=== PATIENT | female | born 1950 | race African-American/Black ===

== ENCOUNTER 2020-04-16 18:57 | Outpatient (CLI) | payer MEDICARE, MEDICAID, SELFPAY ==
--- NOTE | ~2020-04-16 | XR_ITS ---
EXAMINATION: XR cervical spine min 6V EXAM DATE: 04/16/2020 19:40 INDICATION: Left-sided neck pain. TECHNIQUE: Cervical spine frontal, lateral, open-mouth odontoid, bilateral obliques, lateral flexion and lateral extension projections. There is no prior study for comparison. FINDINGS: There is moderate disc disease at C3-4, C5-6, C6-7 and C7-T1. There is 2 mm of retrolisthe sis C3 on C4 and C4 on C5 on the extension projections. Probably moderate right neural foraminal sten osis at C2-3, C5-6 and C6-7. Probably moderate left neural foraminal stenosis at C6-7. Overall modera te cervical arthropathy. Prevertebral soft tissue and pre-dens space are within normal limits. The od ontoid process is intact. The lateral masses of C1 line up with C2. Lung apices unremarkable. IMPRESSION: Cervical spondylosis as above. Reviewed, dictated and finalized at location A.
--- NOTE | ~2020-04-16 | XR_ITS ---
EXAMINATION: XR elbow LT min 3V EXAM DATE: 04/16/2020 19:40 INDICATION: Left elbow pain, worse with bending. Fall, initial encounter. TECHNIQUE: Left elbow frontal, lateral with flexion, and oblique projections obtained and reviewed. There is no prior study for comparison. FINDINGS: Left elbow anterior humeral line intact. There are no acute fractures or dislocations chacha ntified. There is no subcutaneous gas. The soft tissue is unremarkable. There are no radiopaque f oreign bodies. No evidence of joint effusion. IMPRESSION: No acute osseous findings. Reviewed, dictated and finalized at location G. IMPRESSION: No acute osseous findings.
--- NOTE | ~2020-04-16 | XR_ITS ---
EXAMINATION: XR hip LT min 2V EXAM DATE: 04/16/2020 19:40 INDICATION: Initial encounter following injury, with pain of the left hip. TECHNIQUE: Left hip frontal, crosstable lateral and 'frog-leg' projections for interpretation. Ther e is no prior study for comparison. FINDINGS: Smooth left hip femoral head contour, no radiographic evidence of avascular necrosis. Ther e is moderate primary osteoarthritis. There are no acute fractures or dislocations identified. There is no subcutaneous gas. The soft tissue is unremarkable. Lower lumbar posterior fusion. IMPRESSION: 1. Left hip exam without acute osseous findings. 2. Moderate osteoarthritis. Reviewed, dictated and finalized at location A.
== END 2020-04-16 18:58 | disposition home or self-care (01) ==
PROVIDERS: PCP Emergency Medicine; Visit Provider Nurse Practitioner
DX: M25.522 Pain in left elbow (principal); M47.892 Other spondylosis, cervical region; M16.12 Unilateral primary osteoarthritis, left hip
CPT/HCPCS: 72052; 73080; 73502

== ENCOUNTER 2020-10-07 08:32 | Outpatient (CLI) | payer MEDICARE, MEDICAID, SELFPAY ==
--- NOTE | ~2020-10-07 | CT_ITS ---
EXAMINATION: CT abdomen pelvis wo/w con EXAM DATE: 10/07/2020 09:32 INDICATION: Abdominal pain. Urinary urgency. TECHNIQUE: Spiral CT of the abdomen and pelvis was performed without contrast. The patient was then injected with small bolus intravenous Omnipaque 350, followed by delay of approximately 10 minutes to allow collecting system to opacify. A post contrast scan abdomen and pelvis was performed during inj ection of remaining contrast. A total of 130 cc intravenous contrast was administered. The dose-rashel th product (DLP) for this examination was 2903.87 mGy-cm. The exposure was tailored according to pat ient size (auto mA exposure control), and iterative reconstruction (ASIR) was used as additional dose reduction technique. There is no prior study for comparison. FINDINGS: There is no hydronephrosis or nephrolithiasis. There are 2 left renal cysts, largest measu ring 2.0 cm, smallest measuring 9 mm, partially exophytic and hemorrhagic. The kidneys enhance symme trically. There are no suspicious renal lesions. The calyces and opacified portions of ureters are unremarkable, without filling defects or focal suspicious strictures. Mild bladder wall trabeculatio n without significant thickening. No focal bladder wall mass suspected. Probable small calcified fib roid. The liver, spleen, adrenal glands and pancreas are unremarkable. Gallbladder is unremarkable. No bi liary obstruction. There is no retroperitoneal or pelvic lymphadenopathy. There is mild scattered arteriosclerotic disease. The appendix is not positively visualized. There is no pericecal inflammatory change to suggest appe ndicitis. The stomach and small bowel are unremarkable. There is moderate amount of colonic stool. There is moderate sigmoid predominant colonic diverticulosis. There is no adjacent inflammatory sowmya nge to suggest diverticulitis. No free intraperitoneal gas. The heart is normal in size. There ar e no pericardial or pleural effusions. The lung bases are unremarkable. L4-5 laminectomies, posteri or fusion. There are no osteoblastic or osteolytic lesions identified. Surgical bone harvest defect in the right iliac crest. IMPRESSION: 1. Mild bladder wall trabeculation without focal suspicious lesion suspected. 2. Left renal cyst. 3. Colonic diverticulosis. 4. Small calcified fibroid. Reviewed, dictated and finalized at location B. DREN'S COUNSELOR
[2020-10-07 09:14] LABS: Estimated Glomerular Filt Rate > 60
== END 2020-10-07 08:33 | disposition home or self-care (01) ==
PROVIDERS: PCP Emergency Medicine; Visit Provider Emergency Medicine
DX: R10.9 Unspecified abdominal pain (principal); R93.41 Abnormal radiologic findings on diagnostic imaging of renal pelvis, ureter, or bladder; N28.1 Cyst of kidney, acquired; K57.90 Diverticulosis of intestine, part unspecified, without perforation or abscess without bleeding; D21.9 Benign neoplasm of connective and other soft tissue, unspecified
CPT/HCPCS: 74178; Q9967

== ENCOUNTER → 2021-02-07 01:11 | Outpatient (CLI) | payer MEDICARE, MEDICAID, SELFPAY ==
[2021-02-07 19:37] LABS: SARS-CoV-2 RNA PCR Negative
== END ==
PROVIDERS: PCP Emergency Medicine; Visit Provider Internal Medicine Gastroenterology
DX: Z01.812 Encounter for preprocedural laboratory examination (principal); Z20.822 Contact with and (suspected) exposure to COVID-19
CPT/HCPCS: C9803; U0003; U0005

== ENCOUNTER 2021-02-11 00:27 | Day surgery (SDC) | payer MEDICARE, MEDICAID, SELFPAY ==
[2021-02-05 09:13] VITALS: BMI 36.9
[2021-02-11 08:11] VITALS: BP 140/81; PULSE 59; RESP 16; TEMP 36.1; O2SAT 97; BMI 36.2
--- NOTE | 2021-02-11 08:19 | PM.HPGS ---
History of Present Illness History of Present Illness Consent: Risks, benefits, and alternatives have been discussed and questions answered. Patient agrees to proceed with procedure. Chief complaint: neoplasm screening Narrative: Izzy Victoria is a 70 year old female Here today for colon cancer screening. It has been more than 10 years since her last colonoscopy Review of Systems Review of Systems: All systems reviewed & are unremarkable except as noted in HPI and below PMFSH Past Medical History Medical History Aortic ectasia Chronic pain Elevated vitamin B12 level Hepatitis C Osteopenia Pulmonary HTN Surgical History Surgical History History of back surgery History of carpal tunnel release History of endometrial ablation History of hemorrhoidectomy Family History Family History Father Pneumonia Mother Coronary artery disease Diabetes mellitus Hypertension Sibling Rheumatoid arthritis Diabetes mellitus Social History Social History Smoking status: Never smoker Alcohol intake: current Living arrangements: alone Spiritual care concerns: Yes (NO BLOOD PRODUCTS) Meds Home Medications and Allergies Home Medications Medication Instructions Recorded Confirmed Type amlodipine 10 mg tablet 10 mg PO DAILY 10/22/19 02/11/21 History ergocalciferol (vitamin D2) 1,250 1,250 mcg PO WEEKLY 10/22/19 02/11/21 History mcg (50,000 unit) capsule celecoxib 50 mg capsule 50 mg PO BID 01/28/21 02/11/21 History oxybutynin chloride 5 mg tablet 5 mg PO DAILY 01/28/21 02/11/21 History oxycodone-acetaminophen 10 mg-325 1 tablet PO Q6H PRN 01/28/21 02/11/21 History mg tablet tizanidine 4 mg capsule 4 mg PO QHS 01/28/21 02/11/21 History [id number] 1 tablet PO DAILY 02/05/21 02/11/21 History Allergies Allergy/AdvReac Type Severity Reaction Status Date / Time morphine Allergy Mild Rash Verified 02/11/21 08:10 pentazocine [From Talwin] Allergy Mild lethargic Verified 02/11/21 08:10 and sweating Vital Signs Vital Signs - 24 hr 02/11/21 08:11 Temperature 36.1 C L Pulse Rate 59 L Respiratory Rate 16 Blood Pressure 140/81 Pulse Oximetry 97 Exam Const: General: alert Orientation/consciousness: patient oriented x3 Resp: Auscultation: clear to auscultation bilaterally Cardio: Rhythm: regular rhythm GI: GI Palp: Yes Soft to palpation and No Tenderness to palpation present (GI) Neuro: General: patient oriented x3 Assessment and Plan Assessment and plan (1) Colon cancer screening: Code(s): Z12.11 - Encounter for screening for malignant neoplasm of colon Status: Acute Assessment and Plan: EGD with possible biopsy or dilatation or cautery.
--- NOTE | 2021-02-11 08:30 | WPDANESEPPF ---
Anes - Initial Pre Proc Eval Procedure: Operation Date: 02/11/21 09:00 Proposed Procedures p Screening Colonoscopy - Serjio Estrada MD Date/Time: 02/11/21 08:30 Surgeon: Serjio Estrada MD Pre Op Diagnosis: neoplasm screening Patient Data Age: 70 Gender: F Height: 5 ft 7 in Weight: 104.9 kg Last Vital Signs Temp 97 F L 02/11/21 08:11 Pulse 59 L 02/11/21 08:11 Resp 16 02/11/21 08:11 BP 140/81 02/11/21 08:11 Pulse Ox 97 02/11/21 08:11 Allergies Allergy/AdvReac Type Severity Reaction Status Date / Time morphine Allergy Mild Rash Verified 02/11/21 08:10 pentazocine [From Talwin] Allergy Mild lethargic Verified 02/11/21 08:10 and sweating Home Medications Medication Instructions Recorded Confirmed Type amlodipine 10 mg tablet 10 mg PO DAILY 10/22/19 02/11/21 History ergocalciferol (vitamin D2) 1,250 1,250 mcg PO WEEKLY 10/22/19 02/11/21 History mcg (50,000 unit) capsule celecoxib 50 mg capsule 50 mg PO BID 01/28/21 02/11/21 History oxybutynin chloride 5 mg tablet 5 mg PO DAILY 01/28/21 02/11/21 History oxycodone-acetaminophen 10 mg-325 1 tablet PO Q6H PRN 01/28/21 02/11/21 History mg tablet tizanidine 4 mg capsule 4 mg PO QHS 01/28/21 02/11/21 History [id number] 1 tablet PO DAILY 02/05/21 02/11/21 History Patient hx anesthesia problems: none Family hx anesthesia problems: none PMFSH Past Medical History Medical History Aortic ectasia Chronic pain Elevated vitamin B12 level Hepatitis C Osteopenia Pulmonary HTN Surgical History Surgical History History of back surgery History of carpal tunnel release History of endometrial ablation History of hemorrhoidectomy Family History Family History Father Pneumonia Mother Coronary artery disease Diabetes mellitus Hypertension Sibling Rheumatoid arthritis Diabetes mellitus Social History Social History Smoking status: Never smoker Alcohol intake: current Living arrangements: alone Spiritual care concerns: Yes (NO BLOOD PRODUCTS) Anes - Eval Final PreProcedure Day of Procedure 02/11/21 08:30 Patient weight: obese Heart: regular rate and rhythm Lungs: clear to auscultation Airway: Mallampati scale class II Neurological: alert and oriented Last oral intake: >/= 8 hours ASA classification: III Emergent: no Anesthetic plan: proceed Anesthesia type and monitoring: general GIVS and standard monitoring Informed Consent: The patient's anesthetic plan and its attendant risks and benefits were discussed with the patient/family/POA. Questions were solicited and answers provided to the satisfaction of the patient/family/POA.
[2021-02-11] MEDS: LACTATED RINGERS 1,000 ML 150 ML IV CONT (09:08)
[2021-02-11 09:34] VITALS: BP 104/59; PULSE 79; RESP 23; O2SAT 100
[2021-02-11 09:44] VITALS: BP 119/77; PULSE 84; RESP 24; O2SAT 100
[2021-02-11 09:54] VITALS: BP 133/86; PULSE 76; RESP 18; O2SAT 100
== END 2021-02-11 10:11 | disposition home or self-care (01) ==
PROVIDERS: PCP Emergency Medicine; Visit Provider Internal Medicine Gastroenterology
PROC: 0DJD8ZZ Inspection of Lower Intestinal Tract, Via Natural or Artificial Opening Endoscopic (ICD-10-PCS; CPT 45378; principal; 2021-02-11 09:00)
DX: Z12.11 Encounter for screening for malignant neoplasm of colon (principal); K63.5 Polyp of colon; K57.30 Diverticulosis of large intestine without perforation or abscess without bleeding; I27.20 Pulmonary hypertension, unspecified; M85.80 Other specified disorders of bone density and structure, unspecified site; I77.819 Aortic ectasia, unspecified site; Z86.19 Personal history of other infectious and parasitic diseases; E66.9 Obesity, unspecified; Z68.36 Body mass index [BMI] 36.0-36.9, adult
CPT/HCPCS: 45385; 88305; J2704; J7120

== ENCOUNTER 2021-03-24 09:07 | Outpatient (CLI) | payer MEDICARE, MEDICAID, SELFPAY ==
--- NOTE | 2021-03-24 09:12 | EST_ITS ---
Patient Info Name: Izzy Victoria Age: 70 years : 1950 Gender: Female Ht: 67 in Wt: 227 lbs BSA: 2.25 m2 Exam Date: 03/24/2021 9:29 AM Exam Location: [facility] Patient Status: Outpatient Admit Date: 03/24/2021 Staff Ordering Physician: Jose Domingo DO Welder Railcar Mechanic: Alina Ram RDCS Attending Provider: JOSE DOMINGO DO Referring Physician: Stanton BOYLE; Exercise Technologist: Shagufta Patterson RDCS Exercise Physician: Jose Domingo DO Exam Type: CA stress echo Study Info Indications R07.9 - Chest pain, unspecified Treadmill exercise stress echocardiogram is performed. Summary 1. 1. Negative Pete exercise stress test for ischemic ST changes by ECG criteria. 2. 2. Poor functional capacity, achieving 4 METs of workload. 3. 3. Rapid HR response to exercise. 4. 4. Appropriate HR recovery at 1 minute post exercise. 5. 5. Negative stress echocardiogram for ischemia by wall motion analysis. 6. 6. Patient informed of the above results. Stress Echo Findings Left Ventricle Appropriate increase in LV endocardial thickening with systole. Appropriate augmentation of contractility with systole. No wall motion abnormality. Left Ventricle Normal LV systolic function, no wall motion abnormality. Protocol: Pete Stress ECG Details Stage: REST Duration (min): 6 min : 43 sec Speed (mph): 0.0 Grade (%): 0 HR (bpm): 76 SBP (mmHg): 131 DBP (mmHg): 90 METS: --- Stage: REST Duration (min): 22 min : 37 sec Speed (mph): 0.0 Grade (%): 0 HR (bpm): 97 SBP (mmHg): 131 DBP (mmHg): 90 METS: --- Stage: STAGE 1 Duration (min): 1 min : 0 sec Speed (mph): 1.7 Grade (%): 10 HR (bpm): 117 SBP (mmHg): 131 DBP (mmHg): 90 METS: --- Stage: STAGE 1 Duration (min): 2 min : 0 sec Speed (mph): 1.7 Grade (%): 10 HR (bpm): 139 SBP (mmHg): 131 DBP (mmHg): 90 METS: --- Stage: STAGE 1 Duration (min): 2 min : 36 sec Speed (mph): 0.0 Grade (%): 0 HR (bpm): 149 SBP (mmHg): 200 DBP (mmHg): 101 METS: --- Stage: RECOVERY Duration (min): 0 min : 23 sec Speed (mph): 0.0 Grade (%): 0 HR (bpm): 136 SBP (mmHg): 200 DBP (mmHg): 101 METS: --- Stage: RECOVERY Duration (min): 1 min : 23 sec Speed (mph): 0.0 Grade (%): 0 HR (bpm): 102 SBP (mmHg): 200 DBP (mmHg): 101 METS: --- Stage: RECOVERY Duration (min): 2 min : 23 sec Speed (mph): 0.0 Grade (%): 0 HR (bpm): 92 SBP (mmHg): 178 DBP (mmHg): 86 METS: --- Stage: RECOVERY Duration (min): 3 min : 23 sec Speed (mph): 0.0 Grade (%): 0 HR (bpm): 84 SBP (mmHg): 145 DBP (mmHg): 80 METS: --- Stage: RECOVERY Duration (min): 4 min : 23 sec Speed (mph): 0.0 Grade (%): 0 HR (bpm): 83 SBP (mmHg): 145 DBP (mmHg): 80 METS: --- Stage: RECOVERY Duration (min): 4 min : 43 sec Speed (mph): 0.0 Grade (%): 0 HR (bpm):
== END 2021-03-24 09:08 | disposition home or self-care (01) ==
LOC: ANHCARD 09:09
PROVIDERS: PCP Emergency Medicine; Visit Provider Internal Medicine Cardiovascular Disease
DX: R07.9 Chest pain, unspecified (principal)
CPT/HCPCS: 93351

== ENCOUNTER 2021-05-21 16:08 | Outpatient (CLI) | payer MEDICARE, MEDICAID, SELFPAY ==
--- NOTE | ~2021-05-21 | MR_ITS ---
EXAMINATION: MR lumbar spine wo con EXAM DATE: 05/21/2021 16:59 INDICATION: Degenerative disc disease. TECHNIQUE: Multi-sequential, multiplanar MR images of the lumbar spine were obtained without contrast . Sagittal T1, T2, T2 fat saturation images. Axial T2 weighted images. There is no prior study for comparison. FINDINGS: Paraspinal soft tissue is unremarkable. There is moderate to severe disc disease L2-3 and L 3-4. There is posterior and interbody fusion L4-5. L4-5 laminotomies. Moderate disc disease L-1-2. Th ere is 4 mm retrolisthesis L2 on L3. The conus medullaris terminates at the T12-L1 level and has norm al signal intensity and morphology. There are no focal marrow signal abnormalities suspicious for ma lignancy or acute fracture. Level by level evaluation: T12-L1: Disc does not extend beyond the endplate margin. Facet arthropathy: Mild to moderate. Neural foraminal stenosis: No stenosis. Central canal stenosis: No stenosis. L1-L2: There is a mild diffuse disc bulge. Facet arthropathy: Moderate. Neural foraminal stenosis: Mild to moderate right, mild left. Central canal stenosis: No stenosis. L2-L3: There is a mild to moderate diffuse disc bulge. Facet arthropathy: Moderate. Neural foraminal stenosis: Mild to moderate right, mild left. Central canal stenosis: Mild. L3-L4: There is a mild to moderate diffuse disc bulge. Facet arthropathy: Moderate to severe. Neural foraminal stenosis: Severe right, moderate to severe left. Central canal stenosis: Mild to moderate. L4-L5: This level is fused. Facet arthropathy: Moderate . Neural foraminal stenosis: Mild left. Central canal stenosis: No stenosis. L5-S1: There is a mild diffuse disc bulge. Facet arthropathy: Moderate . Neural foraminal stenosis: Moderate bilateral. Central canal stenosis: No stenosis. IMPRESSION: 1. L4-5 fusion. 2. Moderate to severe lumbar spondylosis. Reviewed, dictated and finalized at location B.
== END 2021-05-21 16:09 | disposition home or self-care (01) ==
PROVIDERS: PCP Family Medicine; Visit Provider Family Medicine
DX: M51.9 Unspecified thoracic, thoracolumbar and lumbosacral intervertebral disc disorder (principal); Z98.1 Arthrodesis status; M47.896 Other spondylosis, lumbar region
CPT/HCPCS: 72148

== ENCOUNTER 2021-05-23 15:05 | Inpatient (IN) | payer MEDICARE, MEDICAID, SELFPAY ==
[2021-05-23] VITALS (11 sets, daily range): BP systolic 131–159; BP diastolic 83–97; PULSE 90–100; RESP 16–25; TEMP 37.1–37.6; O2SAT 95–98; BMI 35.2
--- NOTE | ~2021-05-23 | CT_ITS ---
EXAMINATION: CT abdomen pelvis w con DATE: 05/23/2021 17:16 INDICATION: Epigastric abdominal pain TECHNIQUE: Computed tomography (CT) of the abdomen and pelvis was performed with 100 cc Omnipaque 350 intravenous contrast. Automated exposure control and iterative reconstruction technique were employe d. Exam dose: 1105.46 mGy-cm total exam DLP. COMPARISON: Numerous CT abdomen pelvis without and with IV contrast material FINDINGS: There is minimal dependent atelectasis in the lower lobes. Heart size is within normal rang e. No pericardial or pleural effusion. The liver, bile ducts, gallbladder, pancreas, pancreatic duct and spleen and adrenal glands are unrem arkable. 2 cm left renal cyst. Several smaller left renal cysts are noted. No urinary tract calculus or hydroureteronephrosis. The urinary bladder is unremarkable. Calcified uterine fibroid. The adnexal areas are unremarkable. Normal caliber of the abdominal aorta. No intraperitoneal or retroperitoneal or pelvic mass lesion or adenopathy or ascites. Diverticulosis of the colon; no CT evidence of diverticulitis. No bowel obstruction, bowel wall thick ening, pneumatosis or intraperitoneal free air. Small fat-containing umbilical hernia. Status post posterior and interbody spinal fusion at L4-5. Defect in the right iliac bone due to dono r bone harvest site. Prominent degenerative changes of the thoracic and lumbar spine including severe degenerative disc di sease at L2-3 and L3-4, moderate degenerative disc disease at L1-2. Bilateral hip osteoarthritis, particularly prominent on the left IMPRESSION: Left renal cysts Calcified uterine fibroid Diverticulosis of the colon Status post posterior and interbody spinal fusion at L4-5 Prominent degenerative changes of the thoracic and lumbar spine and hips, particularly severe osteoar thritis at the left hip Reviewed, dictated and finalized at Location A. Reviewed, dictated and finalized at location A. IMPRESSION: Left renal cysts Calcified uterine fibroid Diverticulosis of the colon Status post posterior and interbody spinal fusion at L4-5 Prominent degenerative changes of the thoracic and lumbar spine and hips, parti cularly severe osteoarthritis at the left hip
--- NOTE | ~2021-05-23 | XR_ITS ---
XR abdomen/kub 1V 05/25/2021 14:22 Indication: Constipation and abdominal pain Procedure: KUB Comparison: No prior studies for comparison. Findings: There is moderate gas throughout the colon. Small amount of retained fecal material in the distal colon. No definite obstruction. There are surgical changes at L4-5, consistent with fusion. Th ere is moderate lumbar spondylosis with levoscoliosis. There are pelvic calcifications, likely phlebo liths. Impression: 1: Nonobstructive bowel gas pattern. Reviewed, dictated and finalized at location A. Impression: 1: Nonobstructive bowel gas pattern.
[2021-05-23] MEDS: ONDANSETRON INJ 4 MG/2 ML VIAL IV PUSH (16:12)
[2021-05-23] MEDS: SODIUM CHLORIDE 0.9% IV 1,000 ML 999 ML IV CONT (16:12)
[2021-05-23 16:13] LABS: Basophils Percent Auto 0.2 % (0.2-1.2); Eosinophils Percent Auto 0.2 % (0-4.4); Hematocrit 47.5 % (37.0-47.0); Immature Granulocyte Absolute 0.11 K/mm3 (0.00-0.031); Immature Granulocyte Percent A 0.6 % (0-0.5); Lymphocytes Absolute Auto 2.48 K/mm3 (0.9-3.2); Lymphocytes Percent Auto 12.7 % (18.3-44.2); Mean Corpuscular HGB Conc 31.6 g/dl (32-36); Mean Corpuscular Hemoglobin 28.7 pg (26-34); Mean Corpuscular Volume 90.8 fl (80-100); Mean Platelet Volume 10.5 fl (7.4-10.4); Monocytes Absolute Auto 1.9 K/mm3 (0.1-0.6); Monocytes Percent Auto 9.5 % (2.6-8.5); Neutrophils Percent Auto 76.8 % (45.5-73.1); Platelet Count Result 237 k/mm3 (150-375); Red Blood Count 5.23 M/mm3 (4.2-5.4); Red Cell Distribution Width 12.5 % (11.5-14.5); White Blood Count 19.5 K/mm3 (4.5-10.0)
--- NOTE | 2021-05-23 16:19 | ED.ABDPAIN ---
HPI - Abdominal Pain General Chief Complaint: Abdominal Pain Stated Complaint: ABD PAIN, NAUSEA, VOMITING, WEAKNESS Time Seen by Provider: 05/23/21 15:09 Source: RN notes reviewed History of Present Illness HPI narrative: Patient presents emergency department from home for abdominal pain. Patient states symptoms began 2 days ago. States abdominal pain is diffuse throughout the abdomen described as aching in nature. Patient states associated with nausea and vomiting. States she not taking medication for the pain today. The patient denies any fevers or chills chest pain shortness of breath. Denies having any diarrhea Related Data Home Medications Medication Instructions Recorded Confirmed amlodipine 10 mg tablet 10 mg PO DAILY 10/22/19 02/25/21 ergocalciferol (vitamin D2) 1,250 1,250 mcg PO WEEKLY 10/22/19 02/25/21 mcg (50,000 unit) capsule celecoxib 50 mg capsule 50 mg PO BID 01/28/21 02/25/21 oxybutynin chloride 5 mg tablet 5 mg PO DAILY 01/28/21 02/25/21 oxycodone-acetaminophen 10 mg-325 1 tablet PO Q6H PRN 01/28/21 02/25/21 mg tablet tizanidine 4 mg capsule 4 mg PO QHS 01/28/21 02/25/21 [id number] 1 tablet PO DAILY 02/05/21 02/25/21 Allergies Allergy/AdvReac Type Severity Reaction Status Date / Time morphine Allergy Mild Rash Verified 05/23/21 15:08 pentazocine [From Talwin] Allergy Mild lethargic Verified 05/23/21 15:08 and sweating Review of Systems Review of Systems: Gen.: Denies fevers or chills ENT: Denies congestion Respiratory: Denies shortness of breath or cough CV: Denies chest pain or palpitations GI: See HPI denies burning, urgency, frequency or hematuria Musculoskeletal: Denies back pain or muscle pain Neuro: Denies numbness, tingling, weakness or focal weakness Skin: Denies rash Except as documented, all other systems reviewed and negative [facility] Past Medical History Medical History Aortic ectasia Chronic pain Elevated vitamin B12 level Hepatitis C Osteopenia Pulmonary HTN Surgical History Surgical History History of back surgery History of carpal tunnel release History of endometrial ablation History of hemorrhoidectomy Family History Family History Father Pneumonia Mother Coronary artery disease Diabetes mellitus Hypertension Sibling Rheumatoid arthritis Diabetes mellitus Social History Social History Smoking status: Former smoker Alcohol intake: current Spiritual care concerns: Yes (NO BLOOD PRODUCTS) Exam Narrative: APPEARANCE: No acute distress, nontoxic, resting in bed HEENT: Normocephalic, atraumatic, OMM RESPIRATORY: No respiratory distress, clear to auscultation bilaterally with no rhonchi wheezing or rales CARDIOVASCULAR: RRR s murmur ABDOMINAL: Soft nondistended diffusely tender to palpation no rebound or guarding MUSCULOSKELETAl: Moves all extremities. No clubbing, cyanosis or edema. NEURO: Awake and alert. Following commands, speech normal, no focal deficits SKIN:: Warm, dry. Normal Color PSYCHIATRIC: Normal affect/mood Course Course Emergency Course: Called discussed with BRITTANEY Brandon for Dr. Mcgowan presentation work-up agrees with admission at this time Discussed with patient and family results of workup and diagnosis. Discussed need for admission. Patient and family understand and agree to current treatment plan Vital Signs Vital signs: Vital Signs Temperature 99.7 F H 05/23/21 15:45 Pulse Rate 91 05/23/21 15:45 Respiratory Rate 18 05/23/21 15:45 Blood Pressure 159/97 H 05/23/21 15:45 Pulse Oximetry 95 05/23/21 15:45 Temperature 99.7 F H 05/23/21 15:45 Pulse Rate 95 05/23/21 15:51 Respiratory Rate 23 H 05/23/21 15:51 Blood Pressure 150/96 H 05/23/21 15:51 Pulse O
[2021-05-23 16:21] LABS: Lactic Acid Reflex 0.8 mmol/L (0.7-2.1)
[2021-05-23 16:56] LABS: Alanine Aminotransferase 23 U/L (4-35); Albumin Level 4.5 g/dL (3.5-5.1); Alkaline Phosphatase 90 U/L (38-126); Anion Gap 9 mmol/L (8-16); Aspartate Amino Transferase 30 U/L (14-36); Bilirubin,Total 1.3 mg/dL (0.2-1.3); Blood Urea Nitrogen 15 mg/dL (7-17); Calcium 9.5 mg/dL (8.4-10.2); Carbon Dioxide 26 mmol/L (22-30); Chloride 100 mmol/L (98-107); Estimated CRCL calculation 91 ml/min; Estimated Glomerular Filt Rate > 60; Glucose 106 mg/dL (65-110); Lipase 24 U/L (23-300); Potassium 3.6 mmol/L (3.4-5.0); Sodium 135 mmol/L (137-145)
[2021-05-23] MEDS: fentaNYL CITRATE INJ (*CRX) 100 MCG/2 ML VIAL 50 MCG IV PUSH ×2 (17:33→20:02)
[2021-05-23 18:19] LABS: Add Urine Microscopic? YES; Appearance Urine Clear (Clear); Bilirubin Urine Negative (Negative); Blood Urine Negative (Negative); Color Urine Yellow (Yellow); Glucose Urine UA Negative (Negative); Ketones Urine 1+ mg/dL (Negative); Leukocyte Esterase Ur 1+ LEU/UL (Negative); Mucus Urine Rare /lpf; Nitrate Urine Negative (Negative); Protein Urine Negative (Negative); RBC Urine 0-2 /hpf (0-2); Specific Grav Ur 1.016 (1.001-1.035); Squamous Epithelial Cell Urine Rare /hpf (Few); Urobilinogen Urine Negative mg/dL (<2.0)
--- NOTE | 2021-05-23 19:03 | ECG_ITS ---
Measurements Intervals [place] Rate: 92 P: 39 [place]: 173 QRS: -20 QRSD: 96 T: 10 QT: 344 QTc: 427 Interpretive Statements SINUS RHYTHM POSSIBLE LEFT ATRIAL ENLARGEMENT CANNOT RULE OUT SEPTAL INFARCT, AGE INDETERMINATE INFERIOR INFARCT, AGE INDETERMINATE BASELINE ARTIFACT- I, II, V1-V3 ABNORMAL ECG Electronically Signed On 05-23-2021 20:20:26 CDT by Jose Eid D.O.
[2021-05-23] MEDS: PANTOPRAZOLE SODIUM IV 40 MG VIAL IV PUSH (19:11)
--- NOTE | 2021-05-23 20:49 | ADMGEN ---
This patient, Izzy Victoria, was admitted to 3 [facility] Surg Room 316-01. Patient/family oriented to hospital policies and general routines including ID bracelet, bed and alarms, visiting hours, pain management, procedures, bathroom and other care routines, personal items, smoking policy, room service/diet, and visiting hours. Information on how to activate the Rapid Response Team has been discussed. Patient/Family are encouraged to report perceived risks to care and to ask questions if they do not understand what they are told or what they should do.
[2021-05-23] MEDS: SODIUM CHLORIDE 0.9% IV 1,000 ML 125 ML IV CONT (21:59)
[2021-05-24] MEDS: oxyCODONE/ACETAMINOPHEN (*CRX) 5-325 MG TABLET 1 TABLET PO ×3 (01:02→17:39)
[2021-05-24 06:00] VITALS: BP 148/79; PULSE 89; RESP 18; TEMP 37.1; O2SAT 94
[2021-05-24 06:38] LABS: Basophils Absolute Auto 0.1 K/mm3 (0.0-0.1); Basophils Percent Auto 0.3 % (0.2-1.2); Eosinophils Absolute Auto 0.1 K/mm3 (0-0.3); Eosinophils Percent Auto 0.9 % (0-4.4); Hematocrit 45.3 % (37.0-47.0); Hemoglobin 13.7 g/dL (12.0-15.0); Immature Granulocyte Absolute 0.09 K/mm3 (0.00-0.031); Immature Granulocyte Percent A 0.6 % (0-0.5); Lymphocytes Absolute Auto 3.32 K/mm3 (0.9-3.2); Lymphocytes Percent Auto 21.9 % (18.3-44.2); Mean Corpuscular HGB Conc 30.2 g/dl (32-36); Mean Corpuscular Hemoglobin 28.4 pg (26-34); Mean Corpuscular Volume 93.8 fl (80-100); Mean Platelet Volume 10.5 fl (7.4-10.4); Monocytes Absolute Auto 1.7 K/mm3 (0.1-0.6); Neutrophils Absolute Auto 9.9 K/mm3 (1.3-6.7); Neutrophils Percent Auto 65.3 % (45.5-73.1); Platelet Count Result 221 k/mm3 (150-375); Red Blood Count 4.83 M/mm3 (4.2-5.4); Red Cell Distribution Width 12.1 % (11.5-14.5); White Blood Count 15.2 K/mm3 (4.5-10.0)
[2021-05-24] MEDS: SODIUM CHLORIDE 0.9% IV 1,000 ML 125 ML IV CONT ×2 (06:44→13:47)
[2021-05-24 07:34] LABS: Alanine Aminotransferase 18 U/L (4-35); Alkaline Phosphatase 73 U/L (38-126); Anion Gap 8 mmol/L (8-16); Aspartate Amino Transferase 20 U/L (14-36); Bilirubin,Total 0.9 mg/dL (0.2-1.3); Blood Urea Nitrogen 14 mg/dL (7-17); Calcium 9.1 mg/dL (8.4-10.2); Carbon Dioxide 26 mmol/L (22-30); Chloride 105 mmol/L (98-107); Estimated CRCL calculation 78 ml/min; Estimated Glomerular Filt Rate > 60; Glucose 107 mg/dL (65-110); Potassium 3.8 mmol/L (3.4-5.0); Sodium 139 mmol/L (137-145)
[2021-05-24] MEDS: OXYBUTYNIN CHLORIDE 5 MG TABLET PO ×2 (08:07→17:40)
[2021-05-24] MEDS: amLODIPine BESYLATE 5 MG TABLET 10 MG PO (08:07)
--- NOTE | 2021-05-24 11:03 | PM.IMHP ---
H&P: HPI History of Present Illness Date/Time: 05/24/21 11:03 Chief Complaint: abdomina pain nausea/vomiting Narrative: patient is a 70-year-old lady with obstructive sleep apnea not on CPAP, hypertension presenting with approximately 4 days of crampy abdominal pain and nausea, watery bilious vomit. Apparently this is not happen to her before, and she has not been able to keep very much food down. Of note, she had a dental procedure done on Tuesday which was uncomplicated, teeth were removed from the root. She denies fever or chills. No radiation of the pain. Symptoms not related to eating, although she has not been eating anything. Past medical history: LOAN, hypertension Allergies: Documented morphine and pentazocine, however she did not mention any allergies to me Medications: Blood pressure medications Family history: Diabetes rest of the family, although she does not have it Social history: No drugs no alcohol no tobacco Surgeries: Has had carpal tunnel procedure, and this recent dental procedure, and a polypectomy ER course: Vital signs have been stable Labs significant for white count of 19 which is trended down to 15, and 1+ leukocyte esterase in the urine, COVID test was negative CT abdomen and pelvis showed a left renal cyst and calcified uterine fibroid in addition to diverticulosis and status post spinal fusion MRI showing sequelae of osteoarthritis and spondylolisthesis Review of Systems Review of Systems: All systems reviewed & are unremarkable except as noted in HPI and below PMFSH Past Medical History Medical History Aortic ectasia Chronic pain Elevated vitamin B12 level Hepatitis C Osteopenia Pulmonary HTN Surgical History Surgical History History of back surgery History of carpal tunnel release History of endometrial ablation History of hemorrhoidectomy Family History Family History Father Pneumonia Mother Coronary artery disease Diabetes mellitus Hypertension Sibling Rheumatoid arthritis Diabetes mellitus Social History Social History Smoking status: Never smoker Alcohol intake: never Substance use: never Spiritual care concerns: No Meds Home Medications and Allergies Home Medications Medication Instructions Recorded Confirmed Type amlodipine 10 mg tablet 10 mg PO DAILY 10/22/19 05/23/21 History ergocalciferol (vitamin D2) 1,250 1,250 mcg PO WEEKLY 10/22/19 05/23/21 History mcg (50,000 unit) capsule oxybutynin chloride 5 mg tablet 5 mg PO BID 01/28/21 05/24/21 History oxycodone-acetaminophen 10 mg-325 1 tablet PO Q6H PRN 01/28/21 05/23/21 History mg tablet tizanidine 4 mg capsule 4 mg PO QHS 01/28/21 05/23/21 History qlazuhg-hawdzvaiw-lubh 1 tablet PO DAILY 02/05/21 05/23/21 History linaclotide 145 mcg capsule 290 mcg PO DAILY #30 cap 03/10/21 05/23/21 Rx Allergies Allergy/AdvReac Type Severity Reaction Status Date / Time morphine Allergy Mild Rash Verified 05/23/21 15:08 pentazocine [From Julia] Allergy Mild lethargic Verified 05/23/21 15:08 and sweating Vital Signs Vital Signs - 24 hr 05/23/21 15:45 05/23/21 15:51 05/23/21 16:00 Temperature 99.7 F H Pulse Rate 91 95 100 Respiratory Rate 18 23 H 20 Blood Pressure 159/97 H 150/96 H 146/90 H Pulse Oximetry 95 98 98 05/23/21 17:00 05/23/21 18:00 05/23/21 18:37 Temperature 98.7 F Pulse Rate 100 98 Respiratory Rate 20 20 Blood Pressure 148/92 H 148/90 H Pulse Oximetry 98 98 05/23/21 19:00 05/23/21 19:20 05/23/21 20:00 Temperature Pulse Rate 90 100 97 Respiratory Rate 18 17 25 H Blood Pressure 150/92 H 150/92 H 148/90 H Pulse Oximetry 98 96 98 05/23/21 20:50 05/23/21 23:50 05/24/21 06:00 Temperature 99.2 F 99.0 F 98.7 F P
[2021-05-24 12:41] LABS: Hepatitis B Surface Antigen Negative (Negative)
[2021-05-24 12:49] LABS: HAV RESULT Negative (Negative); Hepatitis B Core IgM Result Negative (Negative)
[2021-05-24 12:59] LABS: Hepatitis C Virus Antibody Reactive (Negative)
[2021-05-24 14:00] VITALS: BP 121/83; PULSE 67; RESP 18; TEMP 36.1; O2SAT 92
[2021-05-24 17:12] LABS: CRP 1.6 mg/dL (<1.0)
[2021-05-24 17:42] LABS: Erythrocyte Sedimentation Rate 15 mm/hr (0-20)
[2021-05-24] MEDS: PANTOPRAZOLE SOD SESQUIHYDRATE 20 MG TAB PO (18:35)
[2021-05-24] MEDS: TIZANIDINE HCL 4 MG TABLET PO (21:07)
[2021-05-24 22:00] VITALS: BP 109/60; PULSE 76; RESP 18; TEMP 35.8; O2SAT 94
[2021-05-25] MEDS: SODIUM CHLORIDE 0.9% IV 1,000 ML 125 ML IV CONT ×2 (03:17→13:28)
[2021-05-25] MEDS: oxyCODONE/ACETAMINOPHEN (*CRX) 5-325 MG TABLET 1 TABLET PO ×2 (03:26→09:56)
[2021-05-25 06:00] VITALS: BP 103/68; PULSE 63; RESP 18; TEMP 36.3; O2SAT 95
[2021-05-25 06:29] LABS: Basophils Absolute Auto 0.1 K/mm3 (0.0-0.1); Basophils Percent Auto 0.7 % (0.2-1.2); Eosinophils Absolute Auto 0.3 K/mm3 (0-0.3); Hematocrit 38.4 % (37.0-47.0); Hemoglobin 11.6 g/dL (12.0-15.0); Immature Granulocyte Absolute 0.04 K/mm3 (0.00-0.031); Immature Granulocyte Percent A 0.4 % (0-0.5); Lymphocytes Absolute Auto 3.42 K/mm3 (0.9-3.2); Mean Corpuscular HGB Conc 30.2 g/dl (32-36); Mean Corpuscular Hemoglobin 28.8 pg (26-34); Mean Corpuscular Volume 95.3 fl (80-100); Mean Platelet Volume 10.1 fl (7.4-10.4); Monocytes Absolute Auto 1.2 K/mm3 (0.1-0.6); Monocytes Percent Auto 12.3 % (2.6-8.5); Neutrophils Absolute Auto 4.5 K/mm3 (1.3-6.7); Neutrophils Percent Auto 47.6 % (45.5-73.1); Platelet Count Result 201 k/mm3 (150-375); Red Blood Count 4.03 M/mm3 (4.2-5.4); Red Cell Distribution Width 11.9 % (11.5-14.5); White Blood Count 9.5 K/mm3 (4.5-10.0)
[2021-05-25 06:40] LABS: Alanine Aminotransferase 15 U/L (4-35); Albumin Level 3.2 g/dL (3.5-5.1); Alkaline Phosphatase 56 U/L (38-126); Anion Gap 4 mmol/L (8-16); Aspartate Amino Transferase 24 U/L (14-36); Bilirubin,Total 0.7 mg/dL (0.2-1.3); Blood Urea Nitrogen 12 mg/dL (7-17); Calcium 8.7 mg/dL (8.4-10.2); Carbon Dioxide 26 mmol/L (22-30); Chloride 108 mmol/L (98-107); Estimated CRCL calculation 90 ml/min; Estimated Glomerular Filt Rate > 60; Glucose 92 mg/dL (65-110); Magnesium 2.3 mg/dL (1.6-2.3); Phosphorus 3.4 mg/dL (2.5-4.5); Potassium 3.9 mmol/L (3.4-5.0); Sodium 138 mmol/L (137-145)
[2021-05-25 08:00] VITALS: PULSE 63; RESP 18; O2SAT 95
[2021-05-25] MEDS: ERGOCALCIFEROL 50,000 UNIT CAPSULE 50000 UNITS PO (08:28)
[2021-05-25] MEDS: amLODIPine BESYLATE 5 MG TABLET 10 MG PO (08:28)
[2021-05-25] MEDS: OXYBUTYNIN CHLORIDE 5 MG TABLET PO ×2 (08:28→17:31)
[2021-05-25] MEDS: ENOXAPARIN 40 MG/0.4 ML SYRINGE SUB-Q (08:28)
--- NOTE | 2021-05-25 13:15 | PM.IMPN ---
Progress Note: A&P Assessment and Plan (1) Constipation: Code(s): K59.00 - Constipation, unspecified Status: Acute Assessment and Plan: Passing hard, small balls of stool. Attempted to manually disimpact herself several days ago. Also took 5 doses of Linzess in 1 setting (1450 mcg) with no improvement. KUB ordered. Await results MiraLax and Colace daily Dulcolax suppository Consider soapsuds enema if no improvement with above therapy (2) Abdominal pain: Code(s): R10.9 - Unspecified abdominal pain Status: Acute Assessment and Plan: With associated nausea/vomiting CT abdomen/pelvis with no acute findings. Evidence of diverticulosis but no diverticulitis. Unremarkable liver, bile ducts, gallbladder, pancreas and spleen. Lipase within normal limits. Acute hepatitis panel negative. Already known chronic hepatitis-C LFTs and total bilirubin within normal limits. No evidence of biliary disease. Could consider right upper quadrant ultrasound if no improvement. Gastroenteritis vs gastritis considered. May be related to IBS. Nausea/vomiting has resolved. Advance to full liquid diet and continue to advance as tolerated. Continue gentle IV fluids until she is better tolerating p.o. intake. Suspect likely due to constipation as above. Consider GI consult if no improvement. (3) Chronic, continuous use of opioids: Code(s): F11.90 - Opioid use, unspecified, uncomplicated Status: Acute Assessment and Plan: She takes oxycodone every 6 hours for chronic back pain. It is possible she was taking more than this due to her recent oral surgery. Highly suspect this as the cause of her constipation as above. May also have contributed to nausea/vomiting Discussed with her holding this medication and attempting non narcotic therapies, however she feels strongly that she needs this medication. Discussed limiting narcotics to avoid constipation. She should follow-up with prescribing provider and consider weaning therapy She will need to be on long-term bowel regimen while on opioids (4) Abnormal urinalysis: Code(s): R82.90 - Unspecified abnormal findings in urine Status: Acute Assessment and Plan: UA was slightly abnormal on presentation. She is asymptomatic. Urine culture with growth of mixed rosanne, suggesting likely contamination. Discontinue IV Rocephin as she is asymptomatic Blood cultures pending, negative to date (5) Hypertension: Code(s): I10 - Essential (primary) hypertension Status: Acute Assessment and Plan: Blood pressure reviewed and has been well controlled today. Last BP 103/68. Continue amlodipine 10 mg daily (6) Hepatitis C: Code(s): B19.20 - Unspecified viral hepatitis C without hepatic coma Status: Acute Assessment and Plan: Known to the patient. Reportedly treated in the . Follow-up with PCP Subjective Date/time seen: 05/25/21 13:15 Interval history: Date of service: 05/25/2021 Izzy morrison is a 70-year-old female with history of hepatitis-C pulmonary hypertension, chronic back pain secondary to lumbar fusion on chronic opioids who is seen in follow-up for abdominal pain. She tells me that she has been passing hard stools today that is ?like a wall in a?. She feels her abdomen is bloated and tender. She denies abdominal cramping but she describes an intermittent burning sensation, mostly in the left lower quadrant. She tells me that about 3 days ago, she felt constipated and tried to manually disimpact herself with no success. She also reports taking 5 Linzess pills (1450 mcg) at one time to help her constipation. Discussed that she should not take more than the recommended dose. Denies blood in her stools. She denies fevers or chills. No episodes of emesis today. She does feel weak. Today when she got up to use the restroom, she felt a bit lightheaded.
[2021-05-25 14:00] VITALS: BP 124/79; PULSE 70; RESP 16; TEMP 36.3; O2SAT 97
[2021-05-25] MEDS: polyethylene glycoL 3350 17 GM POWD.PACK PO (14:13)
[2021-05-25] MEDS: BISACODYL 10 MG SUPPOSITORY RECTAL (15:43)
[2021-05-25] MEDS: PANTOPRAZOLE SOD SESQUIHYDRATE 20 MG TAB PO (17:32)
[2021-05-25] MEDS: DOCUSATE SODIUM 100 MG CAPSULE PO (21:41)
[2021-05-25] MEDS: TIZANIDINE HCL 4 MG TABLET PO (21:41)
[2021-05-25] MEDS: ACETAMINOPHEN 325 MG TABLET 650 MG PO (21:41)
[2021-05-25 21:56] VITALS: BP 123/75; PULSE 74; RESP 18; TEMP 36.7; O2SAT 98
[2021-05-26 05:44] VITALS: BP 136/87; PULSE 78; RESP 18; TEMP 36.9; O2SAT 94
[2021-05-26 06:25] LABS: Hemoglobin 13.1 g/dL (12.0-15.0); Mean Corpuscular HGB Conc 29.8 g/dl (32-36); Mean Corpuscular Hemoglobin 29.2 pg (26-34); Mean Corpuscular Volume 98.2 fl (80-100); Mean Platelet Volume 10.2 fl (7.4-10.4); Platelet Count Result 237 k/mm3 (150-375); Red Blood Count 4.48 M/mm3 (4.2-5.4); Red Cell Distribution Width 11.9 % (11.5-14.5); White Blood Count 7.4 K/mm3 (4.5-10.0)
[2021-05-26 06:41] LABS: Anion Gap 4 mmol/L (8-16); Blood Urea Nitrogen 7 mg/dL (7-17); Calcium 9.3 mg/dL (8.4-10.2); Carbon Dioxide 29 mmol/L (22-30); Chloride 107 mmol/L (98-107); Estimated CRCL calculation 90 ml/min; Estimated Glomerular Filt Rate > 60; Glucose 91 mg/dL (65-110); Sodium 140 mmol/L (137-145)
[2021-05-26 08:00] VITALS: PULSE 78; RESP 18; O2SAT 97
[2021-05-26 09:31] VITALS: O2SAT 97
[2021-05-26] MEDS: MAGNESIUM HYDROXIDE SUSP 30 ML UDC PO (09:39)
[2021-05-26] MEDS: polyethylene glycoL 3350 17 GM POWD.PACK PO (09:40)
[2021-05-26] MEDS: amLODIPine BESYLATE 5 MG TABLET 10 MG PO (09:41)
[2021-05-26] MEDS: DOCUSATE SODIUM 100 MG CAPSULE PO ×2 (09:41→21:32)
[2021-05-26] MEDS: OXYBUTYNIN CHLORIDE 5 MG TABLET PO ×2 (09:41→17:42)
[2021-05-26] MEDS: ENOXAPARIN 40 MG/0.4 ML SYRINGE SUB-Q (12:39)
--- NOTE | 2021-05-26 13:45 | P.PNIM_ITS ---
Progress Note: A&P Assessment and Plan (1) Abdominal pain: Code(s): R10.9 - Unspecified abdominal pain Status: Acute Assessment and Plan: With associated nausea/vomiting that has since resolved. * Given lack of improvement, will proceed with gastroenterology consultation. Input is appreciated. * CT abdomen/pelvis with no acute findings. Evidence of diverticulosis but no diverticulitis. Unremarkable liver, bile ducts, gallbladder, pancreas and spleen. * Lipase within normal limits. * Acute hepatitis panel negative. Already known chronic hepatitis-C * LFTs and total bilirubin within normal limits. No evidence of biliary disease. Could consider right upper quadrant ultrasound if no improvement, will await GI recommendations. * Gastroenteritis vs gastritis considered. May be related to IBS. * Nausea/vomiting has resolved. * Unable to tolerate advancement to low-fiber diet today. Return back to full liquids. (2) Constipation: Code(s): K59.00 - Constipation, unspecified Status: Acute Assessment and Plan: She was passing hard, small balls of stool on 05/25. Attempted to manually disimpact herself several days prior. Also took 5 doses of Linzess in 1 setting (1450 mcg) with no improvement. Resolved with 2 regular bowel movements today. * KUB showed nonobstructive bowel gas pattern * Continue MiraLax and Colace daily * Discussed taking Linzess only as prescribed once daily * Initially thought to be the cause of her abdominal pain, though pain persists (3) Chronic, continuous use of opioids: Code(s): F11.90 - Opioid use, unspecified, uncomplicated Status: Acute Assessment and Plan: She takes oxycodone every 6 hours for chronic back pain. It is possible she was taking more than this due to her recent oral surgery. * Highly suspect this as the cause of her constipation as above. May also have contributed to nausea/vomiting * Discussed limiting narcotics to avoid constipation. She should follow-up with prescribing provider and consider weaning therapy * She will need to remain on a long-term bowel regimen while on opioids (4) Abnormal urinalysis: Code(s): R82.90 - Unspecified abnormal findings in urine Status: Acute Assessment and Plan: UA was slightly abnormal on presentation. She is asymptomatic. * Urine culture with growth of mixed rosanne, suggesting likely contamination. * IV Rocephin discontinued on 05/25 as she was asymptomatic * Blood cultures pending, negative to date (5) Hypertension: Code(s): I10 - Essential (primary) hypertension Status: Acute Assessment and Plan: Blood pressure reviewed and has been generally well controlled. Slightly elevated this afternoon at 154/88, may be due to pain. * Continue amlodipine 10 mg daily * Monitor blood pressure trends (6) Hepatitis C: Code(s): B19.20 - Unspecified viral hepatitis C without hepatic coma Status: Acute Assessment and Plan: Known to the patient. Reportedly treated in the . * Follow-up with PCP Subjective Date/time seen: 05/26/21 13:45 Interval history: Date of service: 05/26/2021 Izzy morrison is a 70-year-old female with history of hepatitis-C pulmonary hypertension, chronic back pain secondary to lumbar fusion on chronic opioids who is seen in follow-up for abdominal pain. On my initial encounter today, she was feeling a lot better. She had 2 bowel movements and had near resolution of her abdominal pain. She was tolerating full
--- NOTE | 2021-05-26 13:45 | PM.IMPN ---
Progress Note: A&P Assessment and Plan (1) Abdominal pain: Code(s): R10.9 - Unspecified abdominal pain Status: Acute Assessment and Plan: With associated nausea/vomiting that has since resolved. Given lack of improvement, will proceed with gastroenterology consultation. Input is appreciated. CT abdomen/pelvis with no acute findings. Evidence of diverticulosis but no diverticulitis. Unremarkable liver, bile ducts, gallbladder, pancreas and spleen. Lipase within normal limits. Acute hepatitis panel negative. Already known chronic hepatitis-C LFTs and total bilirubin within normal limits. No evidence of biliary disease. Could consider right upper quadrant ultrasound if no improvement, will await GI recommendations. Gastroenteritis vs gastritis considered. May be related to IBS. Nausea/vomiting has resolved. Unable to tolerate advancement to low-fiber diet today. Return back to full liquids. (2) Constipation: Code(s): K59.00 - Constipation, unspecified Status: Acute Assessment and Plan: She was passing hard, small balls of stool on 05/25. Attempted to manually disimpact herself several days prior. Also took 5 doses of Linzess in 1 setting (1450 mcg) with no improvement. Resolved with 2 regular bowel movements today. KUB showed nonobstructive bowel gas pattern Continue MiraLax and Colace daily Discussed taking Linzess only as prescribed once daily Initially thought to be the cause of her abdominal pain, though pain persists (3) Chronic, continuous use of opioids: Code(s): F11.90 - Opioid use, unspecified, uncomplicated Status: Acute Assessment and Plan: She takes oxycodone every 6 hours for chronic back pain. It is possible she was taking more than this due to her recent oral surgery. Highly suspect this as the cause of her constipation as above. May also have contributed to nausea/vomiting Discussed limiting narcotics to avoid constipation. She should follow-up with prescribing provider and consider weaning therapy She will need to remain on a long-term bowel regimen while on opioids (4) Abnormal urinalysis: Code(s): R82.90 - Unspecified abnormal findings in urine Status: Acute Assessment and Plan: UA was slightly abnormal on presentation. She is asymptomatic. Urine culture with growth of mixed rosanne, suggesting likely contamination. IV Rocephin discontinued on 05/25 as she was asymptomatic Blood cultures pending, negative to date (5) Hypertension: Code(s): I10 - Essential (primary) hypertension Status: Acute Assessment and Plan: Blood pressure reviewed and has been generally well controlled. Slightly elevated this afternoon at 154/88, may be due to pain. Continue amlodipine 10 mg daily Monitor blood pressure trends (6) Hepatitis C: Code(s): B19.20 - Unspecified viral hepatitis C without hepatic coma Status: Acute Assessment and Plan: Known to the patient. Reportedly treated in the . Follow-up with PCP Subjective Date/time seen: 05/26/21 13:45 Interval history: Date of service: 05/26/2021 Izzy morrison is a 70-year-old female with history of hepatitis-C pulmonary hypertension, chronic back pain secondary to lumbar fusion on chronic opioids who is seen in follow-up for abdominal pain. On my initial encounter today, she was feeling a lot better. She had 2 bowel movements and had near resolution of her abdominal pain. She was tolerating full liquids. She wanted to advance to a soft, low-fiber diet and be discharged today. She had an appointment with her pain management provider that she did not want to miss this afternoon. I talked with her about trying solid foods before she could be discharged. She wanted to try something soft given her recent oral surgery. I checked on her again after lunch and she was quite tearful saying that her pain had returned
[2021-05-26 14:00] VITALS: BP 154/88; PULSE 81; RESP 16; TEMP 36.4; O2SAT 97
--- NOTE | 2021-05-26 17:05 | WPDGICN ---
Assessment and Plan Assessment and plan (1) Abdominal pain: Code(s): R10.9 - Unspecified abdominal pain Status: Acute Assessment and Plan: I believe that this is due to the distention of her colon. 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 Her constipation any opiate use has led to decreased colon tone, As evidence by the large amount of air in her colon which though not quite a megacolon is making her quite uncomfortable she would benefit from a peripherally acting Mu opioid receptor antagonist PAMORA) such as Symproic or Relistor (naltrexone) Additional Plan if she does not improve her list or I would consider attempting colonic decompression with the colonoscope but I do not think that will be necessary. GI Consult Note Consult date/time: 05/26/21 17:05 HPI: Izzy Victoria is a 70 year old female who suffers from chronic constipation and is now admitted with acute abdominal pain. This pain began last , several days after she had a dental extraction of several teeth. Apparently only nitrous oxide and local anesthesia was used for the procedure. However she became increasingly constipated and uncomfortable with the results that she began having bilious vomiting. She use the gloved finger to try to disimpact herself upon resorted to taking 5 of her Linzess tablets because the pain was so bad. She has had some bowel movements here in the hospital after being given MiraLax. She tried eating today but the pain became worse. CT scan was done here was negative for any acute process. A plain film of the abdomen showed what was called a 'normal gas pattern'. Actually it shows a somewhat distended colon with a large amount of air and I believe some stool distally although it was difficult to tell for certain. Review of Systems Review of Systems: All systems reviewed & are unremarkable except as noted in HPI and below PMFSH Past Medical History Medical History Aortic ectasia Chronic pain Elevated vitamin B12 level Hepatitis C Osteopenia Pulmonary HTN Surgical History Surgical History History of back surgery History of carpal tunnel release History of endometrial ablation History of hemorrhoidectomy Family History Family History Father Pneumonia Mother Coronary artery disease Diabetes mellitus Hypertension Sibling Rheumatoid arthritis Diabetes mellitus Social History Social History Smoking status: Never smoker Alcohol intake: never Substance use: never Spiritual care concerns: No Meds Home Medications and Allergies Home Medications Medication Instructions Recorded Confirmed Type amlodipine 10 mg tablet 10 mg PO DAILY 10/22/19 05/23/21 History ergocalciferol (vitamin D2) 1,250 1,250 mcg PO WEEKLY 10/22/19 05/23/21 History mcg (50,000 unit) capsule oxybutynin chloride 5 mg tablet 5 mg PO BID 01/28/21 05/24/21 History oxycodone-acetaminophen 10 mg-325 1 tablet PO Q6H PRN 01/28/21 05/23/21 History mg tablet tizanidine 4 mg capsule 4 mg PO QHS 01/28/21 05/23/21 History fbcxvyt-ihhfgvygr-svjc 1 tablet PO DAILY 02/05/21 05/23/21 History linaclotide 145 mcg capsule 290 m
[2021-05-26] MEDS: METHYLNALTREXONE 12 MG/0.6 ML VIAL SUB-Q (17:42)
[2021-05-26] MEDS: PANTOPRAZOLE SOD SESQUIHYDRATE 20 MG TAB PO (17:42)
[2021-05-26] MEDS: ACETAMINOPHEN 325 MG TABLET 650 MG PO (21:32)
[2021-05-26] MEDS: TIZANIDINE HCL 4 MG TABLET PO (21:32)
[2021-05-26 21:51] VITALS: BP 120/68; PULSE 79; RESP 18; TEMP 37.1; O2SAT 100
[2021-05-27 05:33] VITALS: BP 118/76; PULSE 70; RESP 18; TEMP 36.9; O2SAT 100
--- NOTE | 2021-05-27 06:53 | WPDGIPROGNO ---
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 She had partial relief within 15 or 20 minutes of Relistor injection. I am going to try to get it approved for her on an outpatient basis but it may be difficult with Medicare and Medicaid as her coverage (2) Abdominal pain: Code(s): R10.9 - Unspecified abdominal pain Status: Acute Assessment and Plan: resolved. From my perspective she can be discharged. She should have Linzess 290 mcg per day instead of 145 Subjective Date/time seen: 05/27/21 06:53 After administering Relistor last night she states she had bowel movements within 15 minutes. She past a large amount of stools mostly hard ball type stools and also a great deal of gas. Today she feels much better. Her pain is down to 0. Review of Systems Review of Systems: All systems reviewed & are unremarkable except as noted in HPI and below Exam Const: General: cooperative and comfortable Nutritional Appearance: overweight Orientation/consciousness: patient oriented x3 Resp: Effort & Inspection: normal respiratory effort Auscultation: clear to auscultation bilaterally GI: Inspection: non-distended and no visible herniation GI Palp: No abdominal tenderness and Yes Soft to palpation Auscultation: normal bowel sounds Neuro: General: patient oriented x3 Objective Data Vital Signs Vital Signs: Vital Signs - 24 hr 05/26/21 08:00 05/26/21 09:31 05/26/21 14:00 Temperature 36.4 C L Pulse Rate 78 81 Respiratory Rate 18 16 Blood Pressure 154/88 H Pulse Oximetry 97 97 97 05/26/21 21:51 05/27/21 05:33 Temperature 37.1 C 36.9 C Pulse Rate 79 70 Respiratory Rate 18 18 Blood Pressure 120/68 118/76 Pulse Oximetry 100 100 Intake/Output Intake/Output: Intake & Output 05/24/21 05/25/21 05/26/21 05/27/21 23:59 23:59 23:59 23:59 Intake Total 3290 3700 1850 500 Output Total 300 4200 Balance 2990 -500 1850 500 Meds/Results Medications: Active Medications Generic Name Dose Route Start Last Admin Trade Name Freq PRN Reason Stop Dose Admin Acetaminophen 650 mg 05/25/21 13:15 05/26/21 21:32 Acetaminophen 325 Mg Tablet PO 650 mg Q4H PRN Administration Pain Amlodipine Besylate 10 mg 05/24/21 09:00 05/26/21 09:41 Amlodipine Besylate 5 Mg Tablet PO 10 mg DAILY LANRE Administration Docusate Sodium 100 mg 05/25/21 21:00 05/26/21 21:32 Docusate Sodium 100 Mg Capsule PO 100 mg Q12HR LANRE Administration Enoxaparin Sodium 40 mg 05/25/21 09:00 05/26/21 12:39 Enoxaparin 40 Mg/0.4 Ml Syringe SUB-Q 40 mg DAILY LANRE Administration Ergocalciferol 50,000 unit 05/25/21 09:00 05/25/21 08:28 Ergocalciferol 50,000 Unit Capsule PO 50,000 unit Mo@0900 LANRE Administration Ondansetron HCl 4 mg 05/23/21 18:34 Ondansetron Inj 4 Mg/2 Ml Vial IV PUSH Q4H PRN Nausea Oxybutynin Chloride 5 mg 05/24/21 09:00 05/26/21 17:42 Oxybutynin Chloride 5 Mg Tablet PO 5 mg BID LANRE Administration Oxycodone HCl 5 mg 05/25/21 13:15 Oxycodone Hcl (*Crx) 5 Mg Tab Ir PO Q6H PRN Breakthrough pain Pantoprazole Sodium 20 mg 05/24/21 18:00 05/26/21 17:42 Pantoprazole Sod Sesquihydrate 20 Mg Tab PO 20 mg QPM LANRE Administration Polyethylene Glycol 17 gm 05/25/21 13:10 05/26/21 09:40 Polyethylene Glycol 3350 17 Gm Powd.Pack PO 17 gm QAM LANRE Administration Tizanidine HCl 4 mg 05/24/21 21:00 05/26/21 21:32 Tizanidine Hcl 4 Mg Tablet PO 4 mg HS LANRE Administration Radiology Results: ITS Impressions Abdomen/Pelvis CT 05/23/21 17:16 IMPRESSION: Left renal cysts Calcified uterine fibroid Diverticulosis of the colon Status post posterior and interbody spinal fusion at L4-5 Prominent degenerative changes of the thoracic and lumbar spin
[2021-05-27] MEDS: OXYBUTYNIN CHLORIDE 5 MG TABLET PO (08:20)
[2021-05-27] MEDS: DOCUSATE SODIUM 100 MG CAPSULE PO (08:20)
[2021-05-27] MEDS: amLODIPine BESYLATE 5 MG TABLET 10 MG PO (08:20)
[2021-05-27] MEDS: polyethylene glycoL 3350 17 GM POWD.PACK PO (08:21)
--- NOTE | 2021-05-27 11:36 | PM.DS ---
DS: Admitting Diagnosis Discharge Date 05/27/2022 Admitting Diagnosis Abdominal pain DS: Discharge Diagnosis Discharge Diagnosis (1) Abdominal pain: Code(s): R10.9 - Unspecified abdominal pain Status: Acute Assessment and Plan: With associated nausea/vomiting CT abdomen/pelvis with no acute findings. Evidence of diverticulosis but no diverticulitis. Unremarkable liver, bile ducts, gallbladder, pancreas and spleen. Lipase within normal limits. Acute hepatitis panel negative. Already known chronic hepatitis-C. No signs/symptoms of acute infectious process. LFTs and total bilirubin within normal limits. No evidence of biliary disease. Seen in consultation by Gastroenterology Abdominal pain felt to be most likely related to constipation and decreased colonic tone Abdominal pain, nausea/vomiting resolved. Able to tolerate a regular diet (2) Constipation: Code(s): K59.00 - Constipation, unspecified Status: Acute Assessment and Plan: She was passing hard, small balls of stool on 05/25. Attempted to manually disimpact herself several days prior. Also took 5 doses of Linzess in 1 setting (1450 mcg) with no improvement. Secondary to chronic opioid use KUB showed nonobstructive bowel gas pattern Resolved with MiraLax, Colace, and 1 dose of Relistor Continue with daily MiraLax and Colace Continue Linzess 290 mcg daily She will benefit from relistor as an outpatient. Dr. Estrada will try to get this approved through her insurance. Follow-up GI as an outpatient. (3) Chronic, continuous use of opioids: Code(s): F11.90 - Opioid use, unspecified, uncomplicated Status: Acute Assessment and Plan: She takes oxycodone every 6 hours for chronic back pain. It is possible she was taking more than this due to her recent oral surgery. Highly suspect this as the cause of her constipation as above. May also have contributed to nausea/vomiting Discussed limiting narcotics to avoid constipation. She should follow-up with prescribing provider and consider weaning therapy She will need to remain on a long-term bowel regimen while on opioids (4) Abnormal urinalysis: Code(s): R82.90 - Unspecified abnormal findings in urine Status: Acute Assessment and Plan: UA was slightly abnormal on presentation. She was asymptomatic. Urine culture with growth of mixed rosanne, suggesting likely contamination. IV Rocephin discontinued on 05/25 as she was asymptomatic Blood cultures pending, negative to date (5) Hypertension: Code(s): I10 - Essential (primary) hypertension Status: Acute Assessment and Plan: Blood pressure reviewed and was generally well controlled. Continue amlodipine 10 mg daily (6) Hepatitis C: Code(s): B19.20 - Unspecified viral hepatitis C without hepatic coma Status: Acute Assessment and Plan: Known to the patient. Reportedly treated in the . Follow-up with PCP DS: Summary Hospital Course Hospital Course: Date of admission: 05/23/2021 Date of discharge: 05/27/2021 Izzy morrison is a 70-year-old female with history of hepatitis-C, pulmonary hypertension, chronic back pain secondary to lumbar fusion on chronic opioids who presented to the emergency department on 05/23/2021 with complaints of abdominal pain with associated nausea and vomiting ongoing for 2 days. On presentation to the emergency department, her vital signs were stable, temperature minimally elevated at 99.7, WBC 19.5,, additional laboratory workup unremarkable, urinalysis abnormal, CT abdomen/pelvis showed diverticulosis with no other acute findings. She was admitted to the hospitalist service for further evaluation management and was seen in consultation by Gastroenterology. Please see above for further details. Her symptoms were felt to be related to constipation and she had resolution of her symptoms following bowel
[2021-05-27 17:09] LABS: Hepatitis C RNA, Quant PCR <15 IU/mL
== END 2021-05-27 12:23 | disposition home or self-care (01) | DRG 392 ==
LOC: ANHED 18:39 → ANH3MEDSUR 19:11
PROVIDERS: Internal Medicine; Admitting Provider Internal Medicine; Emergency Provider Emergency Medicine; PCP Family Medicine; Visit Provider Physician Assistant
DX: K59.03 Drug induced constipation (principal); K59.9 Functional intestinal disorder, unspecified; K59.09 Other constipation; G89.29 Other chronic pain; M85.80 Other specified disorders of bone density and structure, unspecified site; I27.20 Pulmonary hypertension, unspecified; G47.33 Obstructive sleep apnea (adult) (pediatric); I10 Essential (primary) hypertension; I77.819 Aortic ectasia, unspecified site; E66.9 Obesity, unspecified; Z68.35 Body mass index [BMI] 35.0-35.9, adult; K57.90 Diverticulosis of intestine, part unspecified, without perforation or abscess without bleeding; B18.2 Chronic viral hepatitis C; Z79.891 Long term (current) use of opiate analgesic; M54.9 Dorsalgia, unspecified; T40.2X5A Adverse effect of other opioids, initial encounter; Y92.9 Unspecified place or not applicable; Z98.1 Arthrodesis status; K63.89 Other specified diseases of intestine
CPT/HCPCS: 36415; 72148; 74018; 74177; 80048; 80053; 80074; 81001; 83605; 83690; 83735; 84100; 85025; 85027; 85652; 86140; 87040; 87086; 87088; 87522; 93005; 96361; 96365; 96375; 99285; A9270; C9113; G0378; J0131; J0696; J1650; J2212; J2405; J3010; J7030; Q9967

== ENCOUNTER 2021-06-23 12:52 | Outpatient (CLI) | payer MEDICARE, MEDICAID, SELFPAY ==
--- NOTE | ~2021-06-23 | XR_ITS ---
EXAMINATION: XR hip LT min 3V w AP pelvis INDICATION: Left hip pain TECHNIQUE: AP view the pelvis and three views of the left hip are obtained. COMPARISON: 04/16/2020 FINDINGS: There is unchanged moderate osteoarthritis of the left hip. Mild osteoarthritis is noted in the right hip. Bone alignment is normal. There is no fracture. Phleboliths are noted in the pelvis. IMPRESSION: 1. Moderate left hip osteoarthritis without significant change or acute findings. Reviewed, dictated and finalized at location A. IMPRESSION: 1. Moderate left hip osteoarthritis without significant change or acute finding s.
== END 2021-06-23 12:53 | disposition home or self-care (01) ==
LOC: ANHIMG 12:58
PROVIDERS: PCP Family Medicine; Visit Provider Orthopaedic Surgery
DX: M16.12 Unilateral primary osteoarthritis, left hip (principal)
CPT/HCPCS: 73502

== ENCOUNTER 2021-07-01 10:43 | Outpatient (CLI) | payer MEDICARE, MEDICAID, SELFPAY ==
--- NOTE | ~2021-07-01 | XR_ITS ---
EXAMINATION: XR lg joint inject/asp w image DATE: 07/01/2021 11:40 INDICATION: Unilateral primary osteoarthritis, left hip. TECHNIQUE: A time-out was performed to verify the patient's name, date of , and procedure to b e performed. The procedure including the risks, benefits, and alternatives was discussed with the pat ient. Risks discussed included bleeding and infection. The patient understood the risks and agreed to proceed. The skin overlying the left hip joint was prepped and draped in usual sterile fashion. An esthetic was administered with 1% lidocaine subcutaneously. A 22 G needle was advanced under fluoros copic guidance into the joint. Injection of 1 mL of Omnipaque 240 confirmed intra-articular position of the needle. Subsequently, injectate consisting of 5 mL 1% lidocaine and 2 mL 10 mg/mL Kenalog wa s instilled. The needle was removed and the entry site was cleaned and dressed. There were no immed iate complications. Fluoroscopy exposure time was 0.1 minutes. The total number of images was 2. FINDINGS: Real-time fluoroscopy demonstrates the needle in the left hip joint. Patient's pain prior t o procedure:05/15. Patient's pain following the procedure: 04/14. IMPRESSION: 1. Fluoroscopy guided left hip joint injection of local anesthetic and steroid with decrease in the p atient's presenting pain. Reviewed, dictated and finalized at location A. IMPRESSION: 1. Fluoroscopy guided left hip joint injection of local anesthetic and steroid with decrease in the patient's presenting pain.
== END 2021-07-01 10:44 | disposition home or self-care (01) ==
LOC: ANHIMG 10:48
PROVIDERS: PCP Family Medicine; Visit Provider Orthopaedic Surgery
DX: M16.12 Unilateral primary osteoarthritis, left hip (principal)
CPT/HCPCS: 20610; 77002; J3301; Q9966

== ENCOUNTER 2021-10-21 13:47 | Outpatient (CLI) | payer MEDICARE, MEDICAID, SELFPAY ==
--- NOTE | ~2021-10-21 | XR_ITS ---
XR shoulder RT min 2V DATE: 10/21/2021 14:33 INDICATION: Bilateral shoulder pain. No injury. TECHNIQUE: 4 views COMPARISON: None FINDINGS: There is mild inferior spurring of the acromion clavicular joint. No fracture or dislocatio n, periosteal reaction or bone destruction or abnormal soft tissue calcification is detected. IMPRESSION: Mild inferior acromioclavicular spurring Reviewed, dictated and finalized at location B. TY ATTORNEY
--- NOTE | ~2021-10-21 | XR_ITS ---
XR shoulder LT min 2V DATE: 10/21/2021 14:33 INDICATION: Bilateral shoulder pain TECHNIQUE: 4 views COMPARISON: None FINDINGS: No fracture or dislocation, periosteal reaction or bone destruction or abnormal soft tissue calcification. There is mild osteoarthritis at the left glenohumeral joint. IMPRESSION: Mild osteoarthritis at left glenohumeral joint Reviewed, dictated and finalized at location B. F DATA OFFICER
== END 2021-10-21 13:48 | disposition home or self-care (01) ==
LOC: ANHIMG 13:56
PROVIDERS: PCP Family Medicine; Visit Provider Pain Medicine Pain Medicine
DX: M19.012 Primary osteoarthritis, left shoulder (principal); M77.8 Other enthesopathies, not elsewhere classified
CPT/HCPCS: 73030

== ENCOUNTER 2021-11-03 07:27 | Outpatient (CLI) | payer MEDICARE, MEDICAID, SELFPAY ==
--- NOTE | 2021-11-11 12:23 | WPDSLEEPSTUD ---
Sleep Study Date of Study: 11/03/21 Ordering Provider: Mk Grijalva APRN Interpreting Physician: Juana Cesar DO Sleep Study Type: Split Polysomnogram Height: 1.7 m Weight: 106.594 kg Body Mass Index: 36.8 Neck Circumference (inches): 15 [place]: 2 Reason for Sleep Study Previously diagnosed with LOAN 10 years ago. Didn't tolerate CPAP. Sleep History The patient is a 71 y/o female with HTN, hepatitis C, rheumatoid arthritis, pulmonary hypertension, osteopenia and obesity that had a sleep study ordered by the pulmonary group for evaluation of LOAN. The patient rarely awakens from sleep short of breath. She denies awakening at with heartburn, belching cough. He constantly snores loud enough that others complain. She constantly has trouble sleeping when she has a cold. She frequently wakes up gasping for air throughout the night. She denies having breathing problems at night observed by herself or others. She constantly sweats excessively at night. She occasionally has or palpitations or irregular heartbeats at night. She denies falling asleep during the day while driving. She denies sleep paralysis, cataplexy and hypnagogic/ hypnopompic hallucinations. She occasionally remembers her dreams. She constantly has thoughts racing through her mind. She occasionally feels sad or depressed. She frequently has anxiety. She denies having muscular tension. She occasionally notices parts of her body jerk. She denies kicking during night. She occasionally has crawling and aching feelings in legs. She constantly has leg pain during the night. She occasionally greater teeth during sleep but never awakens with a morning up. He is constantly bothered by pain during the day and constantly awakened by pain during the night. She constantly wakes up feeling stiff in the morning with sore or achy muscles. He constantly wakes up with pain in the neck, spine and other joints. She goes to bed at midnight on both weekdays and weekends. It takes him 1 hour to fall asleep. She wakes up 3-4 times throughout the night to use the restroom watch television. It takes her 10-15 minutes to fall back asleep. She wakes up around 2-3 p.m. home weekdays and between 5 and 7:00 p.m. on the weekends. She typically gets 2-3 hours of sleep per night. She will stay in bed for 2 hours after waking up in the morning. She currently lives alone. He does not consume any caffeinated beverages within 2 hours of bedtime. She does not engage in physical exercise before bedtime. She will watch television before falling asleep. She does not take naps in the afternoon or the evening. She does not consume any caffeinated beverages throughout the day. She denies tobacco, alcohol recreational drug use. [facility] Past Medical History Medical History Aortic ectasia Chronic pain Elevated vitamin B12 level Hepatitis C Osteopenia Pulmonary HTN Surgical History Surgical History History of back surgery 2017 History of carpal tunnel release 2010 History of endometrial ablation History of hemorrhoidectomy Family History Family History Father Pneumonia Mother Coronary artery disease Diabetes mellitus Hypertension Sibling Rheumatoid arthritis Diabetes mellitus Social History Social History Smoking status: Former smoker Alcohol intake: never Substance use: never Gender identity (if verbalized by the patient): Female Spiritual care concerns: No Medications Home Medications Medication Instructions Recorded Confirmed Type ergocalciferol (vitamin D2) 1,250 1,250 mcg PO WEEKLY 10/22/19 10/23/21 History mcg (50,000 unit) capsule oxycodone-acetaminophen 10 mg-325 1 tablet PO Q6H PRN 01/28/21 10/23/21 History m
[2021-11-11 17:55] VITALS: BMI 36.8
== END 2021-11-04 06:20 | disposition home or self-care (01) ==
PROVIDERS: PCP Family Medicine; Visit Provider Nurse Practitioner Family
DX: G47.30 Sleep apnea, unspecified (principal); G47.33 Obstructive sleep apnea (adult) (pediatric)
CPT/HCPCS: 95811

== ENCOUNTER → 2021-12-22 12:45 | Outpatient (CLI) | payer MEDICARE, MEDICAID, SELFPAY ==
--- NOTE | ~2021-12-22 | MR_ITS ---
EXAMINATION: MR lumbar spine wo/w con DATE: 12/22/2021 14:09 INDICATION: Lumbar radicular pain with low back pain radiating to the bilateral legs. TECHNIQUE: Magnetic resonance imaging (MRI) of the lumbar spine was performed without and with 15 mL Multihance intravenous contrast. Sequences included sagittal T2-weighted FSE, sagittal T2-weighted FS FSE, and sagittal and axial T1-weighted FSE. Postcontrast sequences included axial T2-weighted FSE, sagittal T1-weighted FSE, and axial and sagittal T1-weighted FS FSE. COMPARISON: 05/21/2021 FINDINGS: There is approximately 10 degrees lumbar levocurvature. 2 mm retrolisthesis L2 on L3, 1-2 mm retrolis thesis L1 on L2 and 1 mm retrolisthesis T12 on L1. Anterior and posterior spinal fusion at L4-L5 with interbody bone graft cage and bilateral vertical raúl and pedicle screw fixation. Bilateral laminotom ies at L4-L5. Left hemilaminotomy at L2-L3. Vertebral body heights are normal. Severe disc height los s at L2-L3 and L3-L4, both with mild associated fibrofatty degenerative endplate changes. Moderate di sc height loss at T9-T10, T11-T12 and L1-L2. Mild disc height loss at T10-11, T12-L1 and L5-S1. The c onus medullaris terminates at L1 There is normal signal in the caudal spinal cord. Partially visualiz ed at least 1.5 cm diameter nonenhancing T2 hyperintense left renal cyst. Postoperative changes with 2.9 x 1.5 x 1.1 cm nonenhancing seroma surrounded by chronic scarring in the subcutaneous tissues ove rlying the mid to lower lumbar spine. Bone graft harvest site at the right posterior iliac spine. No abnormally enhancing lesions identified. The following disc levels are specifically discussed: T12-L1: Disc is minimally bulging. There is moderate right and severe left facet joint osteoarthritis . There is mild right neural foraminal stenosis. There is no central canal stenosis. L1-L2: Disc is bulging. There is moderate bilateral facet joint osteoarthritis. There is mild left an d moderate right neural foraminal stenosis. There is mild central canal stenosis. L2-L3: Disc is bulging. There is moderate bilateral facet joint osteoarthritis. There is moderate michael ateral neural foraminal stenosis. There is mild central canal stenosis. L3-L4: Disc is bulging. There is severe bilateral facet joint osteoarthritis. There is moderate left and severe right neural foraminal stenosis. There is mild central canal stenosis. L4-L5: Anterior and bilateral posterior spinal fusion. There is mild right and moderate left neural f oraminal stenosis. There is no central canal stenosis. L5-S1: Disc is mildly bulging. There is severe bilateral facet joint osteoarthritis. There is moderat e bilateral, left greater than right neural foraminal stenosis. There is no central canal stenosis. IMPRESSION: 1. Instrumented combined anterior and posterior L4-L5 spinal fusion. 2. No significant change in moderate lower thoracic and severe lumbar spondylosis. Reviewed, dictated and finalized at location A. IMPRESSION: 1. Instrumented combined anterior and posterior L4-L5 spinal fusion. 2. No significant change in moderate lower thoracic and severe lumbar spondylos is.
[2021-12-22 13:51] LABS: Estimated Glomerular Filt Rate > 60
== END ==
PROVIDERS: Visit Provider Registered Nurse Pain Management
DX: M54.16 Radiculopathy, lumbar region (principal); M47.817 Spondylosis without myelopathy or radiculopathy, lumbosacral region; Z98.1 Arthrodesis status; M47.816 Spondylosis without myelopathy or radiculopathy, lumbar region; M47.814 Spondylosis without myelopathy or radiculopathy, thoracic region
CPT/HCPCS: 72158; A9577

== ENCOUNTER 2022-03-17 13:05 | Outpatient (CLI) | payer MEDICARE, MEDICAID, SELFPAY ==
--- NOTE | ~2022-03-17 | XR_ITS ---
XR chest 2V DATE: 03/17/2022 13:25 INDICATION: Preoperative evaluation TECHNIQUE: PA and lateral views COMPARISON: 08/01/2019 CTA chest 06/28/2019 2 view chest FINDINGS: Normal heart size. Is aortic calcification, ectasia and tortuosity. No hilar or mediastinal enlargement. There is mild elevation of the right diaphragm. No pulmonary inf iltrate or consolidation, pleural effusion or pulmonary vascular congestion or pneumothorax is detect ed. There is degenerative spurring of the thoracic spine and particularly prominent degenerative disease of the included lumbar spine. IMPRESSION: No active cardiopulmonary disease Mild elevation right diaphragm Aortic calcification, ectasia and tortuosity Reviewed, dictated and finalized at location A.
--- NOTE | 2022-03-17 13:35 | ECG_ITS ---
Measurements Intervals [place] Rate: 71 P: 53 MN: 178 QRS: -10 QRSD: 97 T: -9 QT: 385 QTc: 420 Interpretive Statements SINUS RHYTHM POSSIBLE LEFT ATRIAL ENLARGEMENT ANTEROSEPTAL INFARCT, AGE INDETERMINATE BORDERLINE T WAVE ABNORMALITY- INFERIOR LEADS BASELINE WANDER- I, II ABNORMAL ECG Electronically Signed On 03-17-2022 13:54:37 CDT by Jose Eid D.O.
== END 2022-03-17 13:06 | disposition home or self-care (01) ==
PROVIDERS: PCP Family Medicine; Visit Provider Family Medicine
DX: Z01.810 Encounter for preprocedural cardiovascular examination (principal); I25.2 Old myocardial infarction
CPT/HCPCS: 71046; 93005

== ENCOUNTER 2022-04-15 10:06 | Outpatient (CLI) | payer MEDICARE, MEDICAID, SELFPAY ==
--- NOTE | ~2022-04-15 | NM_ITS ---
EXAMINATION: NM dior stress w perfusion DATE: 04/15/2022 13:02 INDICATION: Chest pain. TECHNIQUE: Rest images were obtained following intravenous administration of 10.4 mCi Tc99m tetrofosm in (Myoview). The patient was infused intravenously with Lexiscan (regadenoson). Then, 31.7 mCi Tc99m tetrofosmin (Myoview) was administered intravenously, and supine and prone stress images were obtain ed. Data was reconstructed into short axis and horizontal and vertical long axis SPECT images. Gated SPECT images were also obtained. COMPARISON: CT abdomen and pelvis 05/23/2021 FINDINGS: There is no definite reversible or fixed perfusion abnormality to suggest ischemia or infar ction. There is no segmental wall motion abnormality. Left ventricular ejection fraction measures 5 7%. IMPRESSION: 1. No definite ischemia or infarct. 2. Normal left ventricular ejection fraction measuring 57%. Reviewed, dictated and finalized at location A.
--- NOTE | 2022-04-15 11:33 | EST_ITS ---
Patient Info Name: Izzy Victoria Age: 71 years : 1950 Gender: Female Ht: 68 in Wt: 205 lbs BSA: 2.14 m2 HR: 66 bpm BP: 128 / 89 mmHg Heart Rhythm: Sinus Rhythm Exam Date: 04/15/2022 11:46 AM Exam Location: [facility] Stress Patient Status: Outpatient Admit Date: 04/15/2022 Staff Ordering Physician: Jose Eid DO Attending Provider: Jose Eid DO Exercise Technologist: Saira Smallwood CT Exercise Physician: Jose Eid DO Exam Type: CA stress dior w NM Study Info Indications Z01.810 - Encounter for preprocedural cardiovascular examination R07.89 - Other chest pain A regadenoson stress test was performed. Summary 1. 1. Negative lexiscan stress test for ischemic ST changes by ECG criteria. 2. 2. Stable hemodynamics throughout the test. 3. 3. Nuclear scan to follow and will be reported separately. Please correlate with it. 4. 4. Patient informed of the above results. Protocol: Lexiscan Stress ECG Details Stage: REST Duration (min): 1 min : 5 sec HR (bpm): 66 SBP (mmHg): 128 DBP (mmHg): 89 Stage: REST Duration (min): 7 min : 34 sec HR (bpm): 67 SBP (mmHg): 128 DBP (mmHg): 89 Stage: STAGE 1 Duration (min): 0 min : 59 sec HR (bpm): 81 SBP (mmHg): 151 DBP (mmHg): 102 Stage: RECOVERY Duration (min): 1 min : 0 sec HR (bpm): 79 SBP (mmHg): 151 DBP (mmHg): 102 Stage: RECOVERY Duration (min): 2 min : 0 sec HR (bpm): 74 SBP (mmHg): 151 DBP (mmHg): 102 Stage: RECOVERY Duration (min): 2 min : 53 sec HR (bpm): 73 SBP (mmHg): 139 DBP (mmHg): 95 Rest HR: 67 bpm Peak HR: 86 bpm Rest Sys BP: 128 mmHg Peak Sys BP: 151 mmHg Max Pred HR: 148 bpm % Max Pred HR: 58 % Target HR: 126 bpm Max RPP: 12,986 bpm*mmHg Termination Reason: Completed protocol Cardiac Symptoms: None Total Time: 1 min : 0 sec Rest Chamberlain BP: 89 mmHg Peak [place]lain BP: 102 mmHg Total Dose: 0.4 mg Resting ECG Sinus rhythm, anteroseptal infarct, age indeterminate. Stress ECG No ST changes. Arrhythmias None. Report Signatures
== END 2022-04-15 10:07 | disposition home or self-care (01) ==
PROVIDERS: PCP Family Medicine; Visit Provider Internal Medicine Cardiovascular Disease
DX: R07.9 Chest pain, unspecified (principal)
CPT/HCPCS: 78452; 93017; A9502; J2785

== ENCOUNTER 2023-08-17 17:36 | Outpatient (CLI) | payer MEDICARE, MEDICAID, SELFPAY ==
--- NOTE | ~2023-08-17 | XR_ITS ---
EXAM: XR shoulder LT min 2V DATE: 08/17/2023 18:07 HISTORY: BILATERAL SHOULDER JOINT PAIN . COMPARISON: 10/21/2021. FINDINGS: Normal mineralization. No fracture or dislocation. No lytic or blastic lesion. Mild degene rative change at the glenohumeral joint. No erosion or periosteal change. Soft tissues within normal limits. IMPRESSION: Mild left glenohumeral osteoarthritis. Reviewed, dictated and finalized at location K. ATORY OPERATOR
--- NOTE | ~2023-08-17 | XR_ITS ---
EXAM: XR shoulder RT min 2V DATE: 08/17/2023 18:07 HISTORY: BILATERAL SHOULDER JOINT PAIN . COMPARISON: 10/21/2021. FINDINGS: Normal mineralization. No fracture or dislocation. No lytic or blastic lesion. Moderate de generative change at the AC joint. Mild degenerative change at the glenohumeral joint. No erosion or periosteal change. Soft tissues within normal limits. 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 Reviewed, dictated and finalized at location K. PING ROOM SUPERVISOR
== END 2023-08-17 17:37 | disposition home or self-care (01) ==
PROVIDERS: PCP Family Medicine; Visit Provider Family Medicine
DX: M19.012 Primary osteoarthritis, left shoulder (principal); M19.011 Primary osteoarthritis, right shoulder; L02.91 Cutaneous abscess, unspecified
CPT/HCPCS: 73030

== ENCOUNTER 2023-09-15 16:33 | Outpatient (CLI) | payer MEDICARE, MEDICAID, SELFPAY ==
--- NOTE | ~2023-09-15 | US_ITS ---
EXAMINATION: US soft tissue chest DATE: 09/15/2023 17:20 INDICATION: Presternal abscess of skin TECHNIQUE: Multiple grayscale and Doppler ultrasound images of the region of concern anterior to the sternum were obtained. COMPARISON: None FINDINGS: Mild increased vascular flow likely related to hyperemia surrounding a small superficial subcutaneous fluid collection which measures 8 x 6 x 2 mm. There is a hypoechoic tract extending from the fluid c ollection to the skin surface likely representing surgical drainage tract for the reported prior absc ess. No other abnormal fluid collections or masses identified. IMPRESSION: 1. Minimal amount fluid within the decompressed abscess cavity currently measuring 8 x 6 x 2 mm. Reviewed, dictated and finalized at location A. DESTRUCTIVE TESTER IMPRESSION: 1. Minimal amount fluid within the decompressed abscess cavity currently measur ing 8 x 6 x 2 mm.
== END 2023-09-15 16:34 | disposition home or self-care (01) ==
LOC: ANHIMG 16:37
PROVIDERS: PCP Family Medicine; Visit Provider Family Medicine
DX: L02.91 Cutaneous abscess, unspecified (principal)
CPT/HCPCS: 76604

== ENCOUNTER 2023-11-22 19:07 | Emergency (ER) | payer MEDICARE, MEDICAID, SELFPAY ==
[2023-11-22 19:09] VITALS: BP 151/111; PULSE 109; RESP 18; TEMP 36.2; O2SAT 96
[2023-11-22 19:21] LABS: Basophils Absolute Auto 0.1 K/mm3 (0.0-0.1); Basophils Percent Auto 0.7 % (0.2-1.2); Eosinophils Absolute Auto 0.2 K/mm3 (0-0.3); Eosinophils Percent Auto 3.2 % (0-4.4); Hematocrit 46.1 % (37.0-47.0); Hemoglobin 14.1 g/dL (12.0-15.0); Immature Granulocyte Absolute 0.03 K/mm3 (0.00-0.031); Immature Granulocyte Percent A 0.4 % (0-0.5); Lymphocytes Absolute Auto 2.03 K/mm3 (0.9-3.2); Lymphocytes Percent Auto 29.8 % (18.3-44.2); Mean Corpuscular HGB Conc 30.6 g/dl (32-36); Mean Corpuscular Hemoglobin 28.7 pg (26-34); Mean Corpuscular Volume 93.7 fl (80-100); Mean Platelet Volume 10.1 fl (7.4-10.4); Monocytes Absolute Auto 0.7 K/mm3 (0.1-0.6); Monocytes Percent Auto 10.9 % (2.6-8.5); Neutrophils Absolute Auto 3.7 K/mm3 (1.3-6.7); Platelet Count Result 270 k/mm3 (150-375); Red Blood Count 4.92 M/mm3 (4.2-5.4); Red Cell Distribution Width 12.8 % (11.5-14.5); White Blood Count 6.8 K/mm3 (4.5-10.0)
[2023-11-22 19:33] LABS: Alanine Aminotransferase 21 U/L (6-35); Albumin Level 4.8 g/dL (3.5-5.1); Alkaline Phosphatase 81 U/L (38-126); Anion Gap 5 mmol/L (8-16); Aspartate Amino Transferase 30 U/L (14-36); Bilirubin,Total 0.6 mg/dL (0.2-1.3); Blood Urea Nitrogen 14 mg/dL (7-17); Calcium 10.3 mg/dL (8.4-10.2); Carbon Dioxide 28 mmol/L (22-30); Chloride 103 mmol/L (98-107); Estimated CRCL calculation 83 ml/min; Estimated Glomerular Filt Rate > 60; Glucose 103 mg/dL (65-110); Lipase 51 U/L (23-300); Potassium 4.3 mmol/L (3.4-5.0); Sodium 136 mmol/L (137-145)
[2023-11-22 19:58] LABS: Appearance Urine Clear (Clear); Bilirubin Urine Negative (Negative); Blood Urine Negative (Negative); Color Urine Yellow (Yellow); Glucose Urine UA Negative (Negative); Ketones Urine Negative (Negative); Leukocyte Esterase Ur Negative LEU/UL (Negative); Nitrate Urine Negative (Negative); Protein Urine Negative (Negative); Specific Grav Ur 1.015 (1.001-1.035); Urobilinogen Urine 0.2 mg/dL (<2.0)
[2023-11-22 20:09] LABS: Add Urine Microscopic? NO
--- NOTE | 2023-11-22 21:36 | PC.NURSE ---
Pt family approached triage desk and states pt would like to go home. Pt family educated on risks of leaving before seeing provider, verbalized understanding. Pt assisted to family vehicle, in no obvious distress.
== END 2023-11-22 21:56 | disposition left against medical advice (07) ==
LOC: ANHED 21:46
PROVIDERS: Emergency Provider Emergency Medicine; PCP Family Medicine
DX: R10.30 Lower abdominal pain, unspecified (principal)
CPT/HCPCS: 36415; 80053; 83690; 85025; 99199

== ENCOUNTER 2024-11-01 15:09 | Emergency (ER) | payer MEDICARE, MEDICAID, SELFPAY ==
[2024-11-01] VITALS (8 sets, daily range): BP systolic 138–154; BP diastolic 86–92; PULSE 82–101; RESP 16–18; TEMP 36.6; O2SAT 93–100
--- NOTE | 2024-11-01 16:21 | ED.SOB ---
HPI - SOB/Dyspnea General Chief Complaint: Shortness of Breath/Dyspnea <Sharmila Ramsey PA-C - Last Filed: 11/02/24 12:22> Stated Complaint: sob, diagnosed with covid and flu last week <Sharmila Ramsey PA-C - Last Filed: 11/02/24 12:22> Time Seen by Provider: 11/01/24 16:21 <Sharmila Ramsey PA-C - Last Filed: 11/02/24 12:22> Focused HPI: This is a 74 year old female that presents to the ER for shortness of breath, chest pain. Reports a cough. Ongoing over the last couple of weeks. Reports she went to the doctor and was diagnosed with covid and the flu. GENERAL: Well-appearing, well-nourished, and in no acute distress. HEAD: Normocephalic, atraumatic. CHEST: Clear to auscultation. ?No respiratory distress. HEART: Regular rate and rhythm.? NEURO: ?Alert and oriented x3. Patient screened in triage and initial orders placed.? ?Additional care and disposition to be based upon?diagnostic testing and treatment. <Sharmila Ramsey PA-C - Last Filed: 11/02/24 12:22> History of Present Illness HPI Narrative: I agree with the assessment and documentation of Sharmila Ramsey PA-C. <Ni Silver APRN - Last Filed: 11/02/24 04:01> Related Data Home Medications: Home Medications ?Medication ?Instructions ?Recorded ?Confirmed ?Last Taken ?Type oxycodone-acetaminophen 10 mg-325 1 tablet PO Q6H PRN Pain 01/28/21 05/16/24 02/10/21 History mg tablet (Percocet) tizanidine 4 mg capsule 4 mg PO QHS 01/28/21 05/16/24 05/22/21 21:00 History amlodipine 10 mg tablet 10 mg PO DAILY 08/26/21 05/16/24 Unknown History zolpidem 10 mg tablet 10 mg PO QHS 04/29/22 05/16/24 Unknown History <Sharmila Ramsey PA-C - Last Filed: 11/02/24 12:22> Allergies/Adverse Reactions: Allergies Allergy/AdvReac Type Severity Reaction Status Date / Time morphine Allergy Mild Rash Verified 11/01/24 15:17 pentazocine (From Talwin) Allergy Mild lethargic Verified 11/01/24 15:17 and sweating <Sharmila Ramsey PA-C - Last Filed: 11/02/24 12:22> Review of Systems Review of Systems: All systems reviewed & are unremarkable except as noted in HPI and below <Ni Silver APRN - Last Filed: 11/02/24 04:01> [facility] Past Medical History Medical History: Medical History Aortic ectasia Pulmonary HTN Chronic pain Hepatitis C Osteopenia Elevated vitamin B12 level <Sharmila Ramsey PA-C - Last Filed: 11/02/24 12:22> Surgical History Surgical History: Surgical History History of endometrial ablation History of hemorrhoidectomy History of carpal tunnel release 2010 History of back surgery 2017 <Sharmila Ramsey PA-C - Last Filed: 11/02/24 12:22> Family History Family History: Family History Father Pneumonia Mother Coronary artery disease Diabetes mellitus Hypertension Sibling Rheumatoid arthritis Diabetes mellitus <Sharmila Ramsey PA-C - Last Filed: 11/02/24 12:22> Social History Social History: Social History Smoking status: Never smoker Alcohol intake: never Substance use: never Do You Feel Safe in your Home?: Yes Lack of Transportation: No Lack of Food: Never True Current Housing: I Have Housing Concerned About Future Housing: No Difficulty Paying Gas/Electric Bills: No Difficulty Paying for Meds: No Currently Unemployed: No Education: Associate Degree Difficulty w/ Childcare or Family Care: No Living arrangements: alone Occupation/Education: retired Gender identity (if verbalized by the patient): Female Spiritual care concerns: No <Sharmila Ramsey PA-C - Last Filed: 11/02/24 12:22> Exam Narrative: GENERAL: Well appearing, well-nourished, non-toxic, in mild respiratory distress. HEAD: Normocephalic, atraumatic. NECK: Supple. No adenopathy, no masses. RESPIRATORY: Airway patent, respirations mildly labored. Coarse, + rales, + rhonchi, + wheezing. CARDIOVASCULAR: Regular rate and rhythm without murmurs, rubs, or gallops. Peripheral pulses 2+ and equal bilaterally. ABDOMINAL: Soft, nontender, nondistended, no hepatosplenomegaly. Normoactive BS. MUSCULOSKELETAL: Moves all extremities. Strength/ROM intact without gross deformities. SKIN: Warm, dry, normal color. No rashes. NEURO: A&O X3. Speech clear. Cranial nerves intact. PSYCHIATRIC: Appropriate mood and affect. Normal interaction. <Ni Silver APRN - Last Filed: 11/02/24 04:01> Course [employer] OFFICER/PA Physician Supervision Patient's HPI, Exam, and MDM were reviewed and I agreed with the workup and disposition done in the emergency department by the MLP. I was available for consultation, but was not directly involved with patient's care nor did I evaluate the patient. <Dagoberto Terrazas MD - Last Filed: 11/02/24 06:43> Vital Signs Vital signs: Vital Signs Temperature 97.9 F 11/01/24 15:14 Pulse Rate 101 H 11/01/24 15:14 Respiratory Rate 18 11/01/24 15:14 Blood Pressure 154/86 H 11/01/24 15:14 Pulse Oximetry 98 11/01/24 15:14 Oxygen Delivery Room Air 11/01/24 15:14 Temperature 97.9 F 11/01/24 15:14 Pulse Rate 92 11/01/24 23:51 Respiratory Rate 18 11/01/24 23:51 Blood Pressure 138/92 H 11/01/24 23:51 Pulse Oximetry 98 11/01/24 23:51 Oxygen Delivery Room Air 11/01/24 17:15 <Sharmila Ramsey PA-C - Last Filed: 11/02/24 12:22> Vital Signs Temperature 97.9 F 11/01/24 15:14 Pulse Rate 101 H 11/01/24 15:14 Respiratory Rate 18 11/01/24 15:14 Blood Pressure 154/86 H 11/01/24 15:14 Pulse Oximetry 98 11/01/24 15:14 Oxygen Delivery Room Air 11/01/24 15:14 Temperature 97.9 F 11/01/24 15:14 Pulse Rate 92 11/01/24 23:51 Respiratory Rate 18 11/01/24 23:51 Blood Pressure 138/92 H 11/01/24 23:51 Pulse Oximetry 98 11/01/24 23:51 Oxygen Delivery Room Air 11/01/24 17:15 <Ni Silver, CIAIO LUMITE INJECTOR - Last Filed: 11/02/24 04:01> Vital Signs Temperature 97.9 F 11/01/24 15:14 Pulse Rate 101 H 11/01/24 15:14 Respiratory Rate 18 11/01/24 15:14 Blood Pressure 154/86 H 11/01/24 15:14 Pulse Oximetry 98 11/01/24 15:14 Oxygen Delivery Room Air 11/01/24 15:14 Temperature 97.9 F 11/01/24 15:14 Pulse Rate 92 11/01/24 23:51 Respiratory Rate 18 11/01/24 23:51 Blood Pressure 138/92 H 11/01/24 23:51 Pulse Oximetry 98 11/01/24 23:51 Oxygen Delivery Room Air 11/01/24 17:15 <Dagoberto Terrazas MD - Last Filed: 11/02/24 06:43> MDM - SOB/Dyspnea MDM Narrative Medical decision making narrative: This is a 74 year old female that presents to the ER for shortness of breath, chest pain. Reports a cough. Ongoing over the last couple of weeks. Reports she went to the doctor and was diagnosed with covid and the flu. Labs Ordered: CBC, CMP, lactic acid, CRP, troponin, INR, PTT, COVID/flu/RSV swab Imaging Ordered: chest x-ray, CTA chest PE scan Medications Ordered: DuoNeb x 2, Decadron IV, ceftriaxone 1 g IV, azithromycin 500mg IV, Results: Chest x-ray indicates Minimal opacification the left lung base medially which may indicate atelectasis versus pneumonia. Clinical correlation advised. Pt's CT scan indicates 1. No pulmonary embolism. 2. Soft tissue density in the superior mediastinum around the medial end of the clavicle differential include hematoma and lymph nodes. 3. No acute cardiopulmonary pathology. Diagnosis: Bronchitis, shortness of breath Patient Education/Shared MDM: Results of lab work and scans shared with patient. She was initially resistant to hospital admission, then she verbally agreed. Hospitalist was called, but pt changed her mind again. She verbalized frustration with having to wait down in the ER for a bed to open upstairs. [employer] OFFICER spent an extensive amount of time discussing options with pt. Hospitalist came down to see pt and she agreed with plan for hospitalization. Prior to being admitted to the hospital, pt requested to be discharged home. She signed AMA paperwork and walked out of the ER independently in stable condition. <Ni Silver APRN - Last Filed: 11/02/24 04:01> Differential Diagnosis Differential diagnosis: Likely acute exacerbation of chronic obstructive airways disease, congestive heart failure, community acquired pneumonia, pulmonary embolism and other (bronchitis) <Ni Sivler APRN - Last Filed: 11/02/24 04:01> Lab Data Attestation: I reviewed the patient's lab results. <Ni Silver APRN - Last Filed: 11/02/24 04:01> Result diagrams: 11/01/24 17:04 11/01/24 17:04 <Sharmila Ramsey PA-C - Last Filed: 11/02/24 12:22> Labs: Lab Results 11/01/24 11/01/24 11/01/24 Range/Units 17:04 17:04 17:04 WBC 6.7 (4.5-10.0) K/mm3 RBC 4.02 L (4.2-5.4) M/mm3 Hgb 11.9 L (12.0-15.0) g/dL Hct 40.8 (37.0-47.0) % MCV 101.5 H (80-100) fl MCH 29.6 (26-34) pg MCHC 29.2 L (32-36) g/dl RDW 12.4 (11.5-14.5) % Plt Count 302 (150-375) k/mm3 MPV 9.6 (7.4-10.4) fl Immature Gran % (Auto) 0.6 H (0-0.5) % Neut % (Auto) 49.6 (45.5-73.1) % Lymph % (Auto) 35.5 (18.3-44.2) % Merrick % (Auto) 12.0 H (2.6-8.5) % Eos % (Auto) 1.6 (0-4.4) % Baso % (Auto) 0.7 (0.2-1.2) % Lymph # (Auto) 2.37 (0.9-3.2) K/mm3 Merrick # (Auto) 0.8 H (0.1-0.6) K/mm3 Eos # (Auto) 0.1 (0-0.3) K/mm3 Baso # (Auto) 0.1 (0.0-0.1) K/mm3 Abs Immat Gran (auto) 0.04 H (0.00-0.031) K/mm3 Absolute Neuts (auto) 3.3 (1.3-6.7) K/mm3 Absolute Nucleated RBC 0.000 (0.0-0.012) K/mm3 Band Neutrophils % Not Reportable Nucleated RBC % 0.0 (0.0-0.2) % Platelet Estimate Adequate (Adequate) Hypochromasia 1+ Stomatocytes 1+ Schistocytes None seen PT 13.3 (11.1-14.7) Seconds INR 1.0 APTT 33.9 (22.3-36.8) Seconds Sodium Cancelled 141 Potassium Cancelled 4.3 Chloride Cancelled Carbon Dioxide Anion Gap BUN Creatinine Estim Creat Clear Calc Estimated GFR Glucose Lactic Acid (0.7-2.0) mmol/L Calcium Total Bilirubin AST ALT Alkaline Phosphatase Troponin I (0.000-0.034) ng/mL C-Reactive Protein (<1.0) mg/dL NT-Pro-B Natriuret Pep (19.9-100) pg/mL Total Protein Albumin Influenza A (RT-PCR) (Negative) Influenza B (RT-PCR) (Negative) RSV (RT-PCR) (Negative) SARS-CoV-2 RNA (RT-PCR) (Negative) 11/01/24 11/01/24 11/01/24 Range/Units 17:04 17:04 17:04 WBC (4.5-10.0) K/mm3 RBC (4.2-5.4) M/mm3 Hgb (12.0-15.0) g/dL Hct (37.0-47.0) % MCV (80-100) fl MCH (26-34) pg MCHC (32-36) g/dl RDW (11.5-14.5) % Plt Count (150-375) k/mm3 MPV (7.4-10.4) fl Immature Gran % (Auto) (0-0.5) % Neut % (Auto) (45.5-73.1) % Lymph % (Auto) (18.3-44.2) % Merrick % (Auto) (2.6-8.5) % Eos % (Auto) (0-4.4) % Baso % (Auto) (0.2-1.2) % Lymph # (Auto) (0.9-3.2) K/mm3 Merrick # (Auto) (0.1-0.6) K/mm3 Eos # (Auto) (0-0.3) K/mm3 Baso # (Auto) (0.0-0.1) K/mm3 Abs Immat Gran (auto) (0.00-0.031) K/mm3 Absolute Neuts (auto) (1.3-6.7) K/mm3 Absolute Nucleated RBC (0.0-0.012) K/mm3 Band Neutrophils % Nucleated RBC % (0.0-0.2) % Platelet Estimate (Adequate) Hypochromasia Stomatocytes Schistocytes PT (11.1-14.7) Seconds INR APTT (22.3-36.8) Seconds Sodium Potassium Chloride 107 Carbon Dioxide Cancelled 28 Anion Gap Cancelled 6 BUN Cancelled Creatinine Estim Creat Clear Calc Estimated GFR Glucose Lactic Acid (0.7-2.0) mmol/L Calcium Total Bilirubin AST ALT Alkaline Phosphatase Troponin I (0.000-0.034) ng/mL C-Reactive Protein (<1.0) mg/dL NT-Pro-B Natriuret Pep (19.9-100) pg/mL Total Protein Albumin Influenza A (RT-PCR) (Negative) Influenza B (RT-PCR) (Negative) RSV (RT-PCR) (Negative) SARS-CoV-2 RNA (RT-PCR) (Negative) 11/01/24 11/01/24 11/01/24 Range/Units 17:04 17:04 17:04 WBC (4.5-10.0) K/mm3 RBC (4.2-5.4) M/mm3 Hgb (12.0-15.0) g/dL Hct (37.0-47.0) % MCV (80-100) fl MCH (26-34) pg MCHC (32-36) g/dl RDW (11.5-14.5) % Plt Count (150-375) k/mm3 MPV (7.4-10.4) fl Immature Gran % (Auto) (0-0.5) % Neut % (Auto) (45.5-73.1) % Lymph % (Auto) (18.3-44.2) % Merrick % (Auto) (2.6-8.5) % Eos % (Auto) (0-4.4) % Baso % (Auto) (0.2-1.2) % Lymph # (Auto) (0.9-3.2) K/mm3 Merrick # (Auto) (0.1-0.6) K/mm3 Eos # (Auto) (0-0.3) K/mm3 Baso # (Auto) (0.0-0.1) K/mm3 Abs Immat Gran (auto) (0.00-0.031) K/mm3 Absolute Neuts (auto) (1.3-6.7) K/mm3 Absolute Nucleated RBC (0.0-0.012) K/mm3 Band Neutrophils % Nucleated RBC % (0.0-0.2) % Platelet Estimate (Adequate) Hypochromasia Stomatocytes Schistocytes PT (11.1-14.7) Seconds INR APTT (22.3-36.8) Seconds Sodium Potassium Chloride Carbon Dioxide Anion Gap BUN 9 D Creatinine Cancelled 0.51 L Estim Creat Clear Calc Cancelled 94 Estimated GFR Cancelled Glucose Lactic Acid (0.7-2.0) mmol/L Calcium Total Bilirubin AST ALT Alkaline Phosphatase Troponin I (0.000-0.034) ng/mL C-Reactive Protein (<1.0) mg/dL NT-Pro-B Natriuret Pep (19.9-100) pg/mL Total Protein Albumin Influenza A (RT-PCR) (Negative) Influenza B (RT-PCR) (Negative) RSV (RT-PCR) (Negative) SARS-CoV-2 RNA (RT-PCR) (Negative) 11/01/24 11/01/24 11/01/24 Range/Units 17:04 17:04 17:04 WBC (4.5-10.0) K/mm3 RBC (4.2-5.4) M/mm3 Hgb (12.0-15.0) g/dL Hct (37.0-47.0) % MCV (80-100) fl MCH (26-34) pg MCHC (32-36) g/dl RDW (11.5-14.5) % Plt Count (150-375) k/mm3 MPV (7.4-10.4) fl Immature Gran % (Auto) (0-0.5) % Neut % (Auto) (45.5-73.1) % Lymph % (Auto) (18.3-44.2) % Merrick % (Auto) (2.6-8.5) % Eos % (Auto) (0-4.4) % Baso % (Auto) (0.2-1.2) % Lymph # (Auto) (0.9-3.2) K/mm3 Merrick # (Auto) (0.1-0.6) K/mm3 Eos # (Auto) (0-0.3) K/mm3 Baso # (Auto) (0.0-0.1) K/mm3 Abs Immat Gran (auto) (0.00-0.031) K/mm3 Absolute Neuts (auto) (1.3-6.7) K/mm3 Absolute Nucleated RBC (0.0-0.012) K/mm3 Band Neutrophils % Nucleated RBC % (0.0-0.2) % Platelet Estimate (Adequate) Hypochromasia Stomatocytes Schistocytes PT (11.1-14.7) Seconds INR APTT (22.3-36.8) Seconds Sodium Potassium Chloride Carbon Dioxide Anion Gap BUN Creatinine Estim Creat Clear Calc Estimated GFR > 60 Glucose Cancelled 94 Lactic Acid (0.7-2.0) mmol/L Calcium Cancelled 9.4 Total Bilirubin Cancelled AST ALT Alkaline Phosphatase Troponin I (0.000-0.034) ng/mL C-Reactive Protein (<1.0) mg/dL NT-Pro-B Natriuret Pep (19.9-100) pg/mL Total Protein Albumin Influenza A (RT-PCR) (Negative) Influenza B (RT-PCR) (Negative) RSV (RT-PCR) (Negative) SARS-CoV-2 RNA (RT-PCR) (Negative) 11/01/24 11/01/24 11/01/24 Range/Units 17:04 17:04 17:04 WBC (4.5-10.0) K/mm3 RBC (4.2-5.4) M/mm3 Hgb (12.0-15.0) g/dL Hct (37.0-47.0) % MCV (80-100) fl MCH (26-34) pg MCHC (32-36) g/dl RDW (11.5-14.5) % Plt Count (150-375) k/mm3 MPV (7.4-10.4) fl Immature Gran % (Auto) (0-0.5) % Neut % (Auto) (45.5-73.1) % Lymph % (Auto) (18.3-44.2) % Merrick % (Auto) (2.6-8.5) % Eos % (Auto) (0-4.4) % Baso % (Auto) (0.2-1.2) % Lymph # (Auto) (0.9-3.2) K/mm3 Merrick # (Auto) (0.1-0.6) K/mm3 Eos # (Auto) (0-0.3) K/mm3 Baso # (Auto) (0.0-0.1) K/mm3 Abs Immat Gran (auto) (0.00-0.031) K/mm3 Absolute Neuts (auto) (1.3-6.7) K/mm3 Absolute Nucleated RBC (0.0-0.012) K/mm3 Band Neutrophils % Nucleated RBC % (0.0-0.2) % Platelet Estimate (Adequate) Hypochromasia Stomatocytes Schistocytes PT (11.1-14.7) Seconds INR APTT (22.3-36.8) Seconds Sodium Potassium Chloride Carbon Dioxide Anion Gap BUN Creatinine Estim Creat Clear Calc Estimated GFR Glucose Lactic Acid (0.7-2.0) mmol/L Calcium Total Bilirubin 0.9 AST Cancelled 40 H ALT Cancelled 26 Alkaline Phosphatase Cancelled Troponin I (0.000-0.034) ng/mL C-Reactive Protein (<1.0) mg/dL NT-Pro-B Natriuret Pep (19.9-100) pg/mL Total Protein Albumin Influenza A (RT-PCR) (Negative) Influenza B (RT-PCR) (Negative) RSV (RT-PCR) (Negative) SARS-CoV-2 RNA (RT-PCR) (Negative) 11/01/24 11/01/24 11/01/24 Range/Units 17:04 17:04 17:04 WBC (4.5-10.0) K/mm3 RBC (4.2-5.4) M/mm3 Hgb (12.0-15.0) g/dL Hct (37.0-47.0) % MCV (80-100) fl MCH (26-34) pg MCHC (32-36) g/dl RDW (11.5-14.5) % Plt Count (150-375) k/mm3 MPV (7.4-10.4) fl Immature Gran % (Auto) (0-0.5) % Neut % (Auto) (45.5-73.1) % Lymph % (Auto) (18.3-44.2) % Merrick % (Auto) (2.6-8.5) % Eos % (Auto) (0-4.4) % Baso % (Auto) (0.2-1.2) % Lymph # (Auto) (0.9-3.2) K/mm3 Merrick # (Auto) (0.1-0.6) K/mm3 Eos # (Auto) (0-0.3) K/mm3 Baso # (Auto) (0.0-0.1) K/mm3 Abs Immat Gran (auto) (0.00-0.031) K/mm3 Absolute Neuts (auto) (1.3-6.7) K/mm3 Absolute Nucleated RBC (0.0-0.012) K/mm3 Band Neutrophils % Nucleated RBC % (0.0-0.2) % Platelet Estimate (Adequate) Hypochromasia Stomatocytes Schistocytes PT (11.1-14.7) Seconds INR APTT (22.3-36.8) Seconds Sodium Potassium Chloride Carbon Dioxide Anion Gap BUN Creatinine Estim Creat Clear Calc Estimated GFR Glucose Lactic Acid (0.7-2.0) mmol/L Calcium Total Bilirubin AST ALT Alkaline Phosphatase 73 Troponin I 0.035 H* (0.000-0.034) ng/mL C-Reactive Protein (<1.0) mg/dL NT-Pro-B Natriuret Pep 124 H (19.9-100) pg/mL Total Protein Cancelled 8.0 Albumin Cancelled 4.1 Influenza A (RT-PCR) Negative (Negative) Influenza B (RT-PCR) Negative (Negative) RSV (RT-PCR) Negative (Negative) SARS-CoV-2 RNA (RT-PCR) Negative (Negative) 11/01/24 11/01/24 11/02/24 Range/Units 19:05 21:14 00:23 WBC (4.5-10.0) K/mm3 RBC (4.2-5.4) M/mm3 Hgb (12.0-15.0) g/dL Hct (37.0-47.0) % MCV (80-100) fl MCH (26-34) pg MCHC (32-36) g/dl RDW (11.5-14.5) % Plt Count (150-375) k/mm3 MPV (7.4-10.4) fl Immature Gran % (Auto) (0-0.5) % Neut % (Auto) (45.5-73.1) % Lymph % (Auto) (18.3-44.2) % Merrick % (Auto) (2.6-8.5) % Eos % (Auto) (0-4.4) % Baso % (Auto) (0.2-1.2) % Lymph # (Auto) (0.9-3.2) K/mm3 Merrick # (Auto) (0.1-0.6) K/mm3 Eos # (Auto) (0-0.3) K/mm3 Baso # (Auto) (0.0-0.1) K/mm3 Abs Immat Gran (auto) (0.00-0.031) K/mm3 Absolute Neuts (auto) (1.3-6.7) K/mm3 Absolute Nucleated RBC (0.0-0.012) K/mm3 Band Neutrophils % Nucleated RBC % (0.0-0.2) % Platelet Estimate (Adequate) Hypochromasia Stomatocytes Schistocytes PT (11.1-14.7) Seconds INR APTT (22.3-36.8) Seconds Sodium Potassium Chloride Carbon Dioxide Anion Gap BUN Creatinine Estim Creat Clear Calc Estimated GFR Glucose Lactic Acid 0.9 (0.7-2.0) mmol/L Calcium Total Bilirubin AST ALT Alkaline Phosphatase Troponin I < 0.012 D < 0.012 (0.000-0.034) ng/mL C-Reactive Protein < 0.5 (<1.0) mg/dL NT-Pro-B Natriuret Pep (19.9-100) pg/mL Total Protein Albumin Influenza A (RT-PCR) (Negative) Influenza B (RT-PCR) (Negative) RSV (RT-PCR) (Negative) SARS-CoV-2 RNA (RT-PCR) (Negative) <Sharmila Ramsey PA-C - Last Filed: 11/02/24 12:22> Lab Results 11/01/24 11/01/24 11/01/24 Range/Units 17:04 17:04 17:04 WBC 6.7 (4.5-10.0) K/mm3 RBC 4.02 L (4.2-5.4) M/mm3 Hgb 11.9 L (12.0-15.0) g/dL Hct 40.8 (37.0-47.0) % MCV 101.5 H (80-100) fl MCH 29.6 (26-34) pg MCHC 29.2 L (32-36) g/dl RDW 12.4 (11.5-14.5) % Plt Count 302 (150-375) k/mm3 MPV 9.6 (7.4-10.4) fl Immature Gran % (Auto) 0.6 H (0-0.5) % Neut % (Auto) 49.6 (45.5-73.1) % Lymph % (Auto) 35.5 (18.3-44.2) % Merrick % (Auto) 12.0 H (2.6-8.5) % Eos % (Auto) 1.6 (0-4.4) % Baso % (Auto) 0.7 (0.2-1.2) % Lymph # (Auto) 2.37 (0.9-3.2) K/mm3 Merrick # (Auto) 0.8 H (0.1-0.6) K/mm3 Eos # (Auto) 0.1 (0-0.3) K/mm3 Baso # (Auto) 0.1 (0.0-0.1) K/mm3 Abs Immat Gran (auto) 0.04 H (0.00-0.031) K/mm3 Absolute Neuts (auto) 3.3 (1.3-6.7) K/mm3 Absolute Nucleated RBC 0.000 (0.0-0.012) K/mm3 Band Neutrophils % Not Reportable Nucleated RBC % 0.0 (0.0-0.2) % Platelet Estimate Adequate (Adequate) Hypochromasia 1+ Stomatocytes 1+ Schistocytes None seen PT 13.3 (11.1-14.7) Seconds INR 1.0 APTT 33.9 (22.3-36.8) Seconds Sodium Cancelled 141 Potassium Cancelled 4.3 Chloride Cancelled Carbon Dioxide Anion Gap BUN Creatinine Estim Creat Clear Calc Estimated GFR Glucose Lactic Acid (0.7-2.0) mmol/L Calcium Total Bilirubin AST ALT Alkaline Phosphatase Troponin I (0.000-0.034) ng/mL C-Reactive Protein (<1.0) mg/dL NT-Pro-B Natriuret Pep (19.9-100) pg/mL Total Protein Albumin Influenza A (RT-PCR) (Negative) Influenza B (RT-PCR) (Negative) RSV (RT-PCR) (Negative) SARS-CoV-2 RNA (RT-PCR) (Negative) 11/01/24 11/01/24 11/01/24 Range/Units 17:04 17:04 17:04 WBC (4.5-10.0) K/mm3 RBC (4.2-5.4) M/mm3 Hgb (12.0-15.0) g/dL Hct (37.0-47.0) % MCV (80-100) fl MCH (26-34) pg MCHC (32-36) g/dl RDW (11.5-14.5) % Plt Count (150-375) k/mm3 MPV (7.4-10.4) fl Immature Gran % (Auto) (0-0.5) % Neut % (Auto) (45.5-73.1) % Lymph % (Auto) (18.3-44.2) % Merrick % (Auto) (2.6-8.5) % Eos % (Auto) (0-4.4) % Baso % (Auto) (0.2-1.2) % Lymph # (Auto) (0.9-3.2) K/mm3 Merrick # (Auto) (0.1-0.6) K/mm3 Eos # (Auto) (0-0.3) K/mm3 Baso # (Auto) (0.0-0.1) K/mm3 Abs Immat Gran (auto) (0.00-0.031) K/mm3 Absolute Neuts (auto) (1.3-6.7) K/mm3 Absolute Nucleated RBC (0.0-0.012) K/mm3 Band Neutrophils % Nucleated RBC % (0.0-0.2) % Platelet Estimate (Adequate) Hypochromasia Stomatocytes Schistocytes PT (11.1-14.7) Seconds INR APTT (22.3-36.8) Seconds Sodium Potassium Chloride 107 Carbon Dioxide Cancelled 28 Anion Gap Cancelled 6 BUN Cancelled Creatinine Estim Creat Clear Calc Estimated GFR Glucose Lactic Acid (0.7-2.0) mmol/L Calcium Total Bilirubin AST ALT Alkaline Phosphatase Troponin I (0.000-0.034) ng/mL C-Reactive Protein (<1.0) mg/dL NT-Pro-B Natriuret Pep (19.9-100) pg/mL Total Protein Albumin Influenza A (RT-PCR) (Negative) Influenza B (RT-PCR) (Negative) RSV (RT-PCR) (Negative) SARS-CoV-2 RNA (RT-PCR) (Negative) 11/01/24 11/01/24 11/01/24 Range/Units 17:04 17:04 17:04 WBC (4.5-10.0) K/mm3 RBC (4.2-5.4) M/mm3 Hgb (12.0-15.0) g/dL Hct (37.0-47.0) % MCV (80-100) fl MCH (26-34) pg MCHC (32-36) g/dl RDW (11.5-14.5) % Plt Count (150-375) k/mm3 MPV (7.4-10.4) fl Immature Gran % (Auto) (0-0.5) % Neut % (Auto) (45.5-73.1) % Lymph % (Auto) (18.3-44.2) % Merrick % (Auto) (2.6-8.5) % Eos % (Auto) (0-4.4) % Baso % (Auto) (0.2-1.2) % Lymph # (Auto) (0.9-3.2) K/mm3 Merrick # (Auto) (0.1-0.6) K/mm3 Eos # (Auto) (0-0.3) K/mm3 Baso # (Auto) (0.0-0.1) K/mm3 Abs Immat Gran (auto) (0.00-0.031) K/mm3 Absolute Neuts (auto) (1.3-6.7) K/mm3 Absolute Nucleated RBC (0.0-0.012) K/mm3 Band Neutrophils % Nucleated RBC % (0.0-0.2) % Platelet Estimate (Adequate) Hypochromasia Stomatocytes Schistocytes PT (11.1-14.7) Seconds INR APTT (22.3-36.8) Seconds Sodium Potassium Chloride Carbon Dioxide Anion Gap BUN 9 D Creatinine Cancelled 0.51 L Estim Creat Clear Calc Cancelled 94 Estimated GFR Cancelled Glucose Lactic Acid (0.7-2.0) mmol/L Calcium Total Bilirubin AST ALT Alkaline Phosphatase Troponin I (0.000-0.034) ng/mL C-Reactive Protein (<1.0) mg/dL NT-Pro-B Natriuret Pep (19.9-100) pg/mL Total Protein Albumin Influenza A (RT-PCR) (Negative) Influenza B (RT-PCR) (Negative) RSV (RT-PCR) (Negative) SARS-CoV-2 RNA (RT-PCR) (Negative) 11/01/24 11/01/24 11/01/24 Range/Units 17:04 17:04 17:04 WBC (4.5-10.0) K/mm3 RBC (4.2-5.4) M/mm3 Hgb (12.0-15.0) g/dL Hct (37.0-47.0) % MCV (80-100) fl MCH (26-34) pg MCHC (32-36) g/dl RDW (11.5-14.5) % Plt Count (150-375) k/mm3 MPV (7.4-10.4) fl Immature Gran % (Auto) (0-0.5) % Neut % (Auto) (45.5-73.1) % Lymph % (Auto) (18.3-44.2) % Merrick % (Auto) (2.6-8.5) % Eos % (Auto) (0-4.4) % Baso % (Auto) (0.2-1.2) % Lymph # (Auto) (0.9-3.2) K/mm3 Merrick # (Auto) (0.1-0.6) K/mm3 Eos # (Auto) (0-0.3) K/mm3 Baso # (Auto) (0.0-0.1) K/mm3 Abs Immat Gran (auto) (0.00-0.031) K/mm3 Absolute Neuts (auto) (1.3-6.7) K/mm3 Absolute Nucleated RBC (0.0-0.012) K/mm3 Band Neutrophils % Nucleated RBC % (0.0-0.2) % Platelet Estimate (Adequate) Hypochromasia Stomatocytes Schistocytes PT (11.1-14.7) Seconds INR APTT (22.3-36.8) Seconds Sodium Potassium Chloride Carbon Dioxide Anion Gap BUN Creatinine Estim Creat Clear Calc Estimated GFR > 60 Glucose Cancelled 94 Lactic Acid (0.7-2.0) mmol/L Calcium Cancelled 9.4 Total Bilirubin Cancelled AST ALT Alkaline Phosphatase Troponin I (0.000-0.034) ng/mL C-Reactive Protein (<1.0) mg/dL NT-Pro-B Natriuret Pep (19.9-100) pg/mL Total Protein Albumin Influenza A (RT-PCR) (Negative) Influenza B (RT-PCR) (Negative) RSV (RT-PCR) (Negative) SARS-CoV-2 RNA (RT-PCR) (Negative) 11/01/24 11/01/24 11/01/24 Range/Units 17:04 17:04 17:04 WBC (4.5-10.0) K/mm3 RBC (4.2-5.4) M/mm3 Hgb (12.0-15.0) g/dL Hct (37.0-47.0) % MCV (80-100) fl MCH (26-34) pg MCHC (32-36) g/dl RDW (11.5-14.5) % Plt Count (150-375) k/mm3 MPV (7.4-10.4) fl Immature Gran % (Auto) (0-0.5) % Neut % (Auto) (45.5-73.1) % Lymph % (Auto) (18.3-44.2) % Merrick % (Auto) (2.6-8.5) % Eos % (Auto) (0-4.4) % Baso % (Auto) (0.2-1.2) % Lymph # (Auto) (0.9-3.2) K/mm3 Merrick # (Auto) (0.1-0.6) K/mm3 Eos # (Auto) (0-0.3) K/mm3 Baso # (Auto) (0.0-0.1) K/mm3 Abs Immat Gran (auto) (0.00-0.031) K/mm3 Absolute Neuts (auto) (1.3-6.7) K/mm3 Absolute Nucleated RBC (0.0-0.012) K/mm3 Band Neutrophils % Nucleated RBC % (0.0-0.2) % Platelet Estimate (Adequate) Hypochromasia Stomatocytes Schistocytes PT (11.1-14.7) Seconds INR APTT (22.3-36.8) Seconds Sodium Potassium Chloride Carbon Dioxide Anion Gap BUN Creatinine Estim Creat Clear Calc Estimated GFR Glucose Lactic Acid (0.7-2.0) mmol/L Calcium Total Bilirubin 0.9 AST Cancelled 40 H ALT Cancelled 26 Alkaline Phosphatase Cancelled Troponin I (0.000-0.034) ng/mL C-Reactive Protein (<1.0) mg/dL NT-Pro-B Natriuret Pep (19.9-100) pg/mL Total Protein Albumin Influenza A (RT-PCR) (Negative) Influenza B (RT-PCR) (Negative) RSV (RT-PCR) (Negative) SARS-CoV-2 RNA (RT-PCR) (Negative) 11/01/24 11/01/24 11/01/24 Range/Units 17:04 17:04 17:04 WBC (4.5-10.0) K/mm3 RBC (4.2-5.4) M/mm3 Hgb (12.0-15.0) g/dL Hct (37.0-47.0) % MCV (80-100) fl MCH (26-34) pg MCHC (32-36) g/dl RDW (11.5-14.5) % Plt Count (150-375) k/mm3 MPV (7.4-10.4) fl Immature Gran % (Auto) (0-0.5) % Neut % (Auto) (45.5-73.1) % Lymph % (Auto) (18.3-44.2) % Merrick % (Auto) (2.6-8.5) % Eos % (Auto) (0-4.4) % Baso % (Auto) (0.2-1.2) % Lymph # (Auto) (0.9-3.2) K/mm3 Merrick # (Auto) (0.1-0.6) K/mm3 Eos # (Auto) (0-0.3) K/mm3 Baso # (Auto) (0.0-0.1) K/mm3 Abs Immat Gran (auto) (0.00-0.031) K/mm3 Absolute Neuts (auto) (1.3-6.7) K/mm3 Absolute Nucleated RBC (0.0-0.012) K/mm3 Band Neutrophils % Nucleated RBC % (0.0-0.2) % Platelet Estimate (Adequate) Hypochromasia Stomatocytes Schistocytes PT (11.1-14.7) Seconds INR APTT (22.3-36.8) Seconds Sodium Potassium Chloride Carbon Dioxide Anion Gap BUN Creatinine Estim Creat Clear Calc Estimated GFR Glucose Lactic Acid (0.7-2.0) mmol/L Calcium Total Bilirubin AST ALT Alkaline Phosphatase 73 Troponin I 0.035 H* (0.000-0.034) ng/mL C-Reactive Protein (<1.0) mg/dL NT-Pro-B Natriuret Pep 124 H (19.9-100) pg/mL Total Protein Cancelled 8.0 Albumin Cancelled 4.1 Influenza A (RT-PCR) Negative (Negative) Influenza B (RT-PCR) Negative (Negative) RSV (RT-PCR) Negative (Negative) SARS-CoV-2 RNA (RT-PCR) Negative (Negative) 11/01/24 11/01/24 11/02/24 Range/Units 19:05 21:14 00:23 WBC (4.5-10.0) K/mm3 RBC (4.2-5.4) M/mm3 Hgb (12.0-15.0) g/dL Hct (37.0-47.0) % MCV (80-100) fl MCH (26-34) pg MCHC (32-36) g/dl RDW (11.5-14.5) % Plt Count (150-375) k/mm3 MPV (7.4-10.4) fl Immature Gran % (Auto) (0-0.5) % Neut % (Auto) (45.5-73.1) % Lymph % (Auto) (18.3-44.2) % Merrick % (Auto) (2.6-8.5) % Eos % (Auto) (0-4.4) % Baso % (Auto) (0.2-1.2) % Lymph # (Auto) (0.9-3.2) K/mm3 Merrick # (Auto) (0.1-0.6) K/mm3 Eos # (Auto) (0-0.3) K/mm3 Baso # (Auto) (0.0-0.1) K/mm3 Abs Immat Gran (auto) (0.00-0.031) K/mm3 Absolute Neuts (auto) (1.3-6.7) K/mm3 Absolute Nucleated RBC (0.0-0.012) K/mm3 Band Neutrophils % Nucleated RBC % (0.0-0.2) % Platelet Estimate (Adequate) Hypochromasia Stomatocytes Schistocytes PT (11.1-14.7) Seconds INR APTT (22.3-36.8) Seconds Sodium Potassium Chloride Carbon Dioxide Anion Gap BUN Creatinine Estim Creat Clear Calc Estimated GFR Glucose Lactic Acid 0.9 (0.7-2.0) mmol/L Calcium Total Bilirubin AST ALT Alkaline Phosphatase Troponin I < 0.012 D < 0.012 (0.000-0.034) ng/mL C-Reactive Protein < 0.5 (<1.0) mg/dL NT-Pro-B Natriuret Pep (19.9-100) pg/mL Total Protein Albumin Influenza A (RT-PCR) (Negative) Influenza B (RT-PCR) (Negative) RSV (RT-PCR) (Negative) SARS-CoV-2 RNA (RT-PCR) (Negative) <Ni Silver, CIAIO LUMITE INJECTOR - Last Filed: 11/02/24 04:01> Lab Results 11/01/24 11/01/24 11/01/24 Range/Units 17:04 17:04 17:04 WBC 6.7 (4.5-10.0) K/mm3 RBC 4.02 L (4.2-5.4) M/mm3 Hgb 11.9 L (12.0-15.0) g/dL Hct 40.8 (37.0-47.0) % MCV 101.5 H (80-100) fl MCH 29.6 (26-34) pg MCHC 29.2 L (32-36) g/dl RDW 12.4 (11.5-14.5) % Plt Count 302 (150-375) k/mm3 MPV 9.6 (7.4-10.4) fl Immature Gran % (Auto) 0.6 H (0-0.5) % Neut % (Auto) 49.6 (45.5-73.1) % Lymph % (Auto) 35.5 (18.3-44.2) % Merrick % (Auto) 12.0 H (2.6-8.5) % Eos % (Auto) 1.6 (0-4.4) % Baso % (Auto) 0.7 (0.2-1.2) % Lymph # (Auto) 2.37 (0.9-3.2) K/mm3 Merrick # (Auto) 0.8 H (0.1-0.6) K/mm3 Eos # (Auto) 0.1 (0-0.3) K/mm3 Baso # (Auto) 0.1 (0.0-0.1) K/mm3 Abs Immat Gran (auto) 0.04 H (0.00-0.031) K/mm3 Absolute Neuts (auto) 3.3 (1.3-6.7) K/mm3 Absolute Nucleated RBC 0.000 (0.0-0.012) K/mm3 Band Neutrophils % Not Reportable Nucleated RBC % 0.0 (0.0-0.2) % Platelet Estimate Adequate (Adequate) Hypochromasia 1+ Stomatocytes 1+ Schistocytes None seen PT 13.3 (11.1-14.7) Seconds INR 1.0 APTT 33.9 (22.3-36.8) Seconds Sodium Cancelled 141 Potassium Cancelled 4.3 Chloride Cancelled Carbon Dioxide Anion Gap BUN Creatinine Estim Creat Clear Calc Estimated GFR Glucose Lactic Acid (0.7-2.0) mmol/L Calcium Total Bilirubin AST ALT Alkaline Phosphatase Troponin I (0.000-0.034) ng/mL C-Reactive Protein (<1.0) mg/dL NT-Pro-B Natriuret Pep (19.9-100) pg/mL Total Protein Albumin Influenza A (RT-PCR) (Negative) Influenza B (RT-PCR) (Negative) RSV (RT-PCR) (Negative) SARS-CoV-2 RNA (RT-PCR) (Negative) 11/01/24 11/01/24 11/01/24 Range/Units 17:04 17:04 17:04 WBC (4.5-10.0) K/mm3 RBC (4.2-5.4) M/mm3 Hgb (12.0-15.0) g/dL Hct (37.0-47.0) % MCV (80-100) fl MCH (26-34) pg MCHC (32-36) g/dl RDW (11.5-14.5) % Plt Count (150-375) k/mm3 MPV (7.4-10.4) fl Immature Gran % (Auto) (0-0.5) % Neut % (Auto) (45.5-73.1) % Lymph % (Auto) (18.3-44.2) % Merrick % (Auto) (2.6-8.5) % Eos % (Auto) (0-4.4) % Baso % (Auto) (0.2-1.2) % Lymph # (Auto) (0.9-3.2) K/mm3 Merrick # (Auto) (0.1-0.6) K/mm3 Eos # (Auto) (0-0.3) K/mm3 Baso # (Auto) (0.0-0.1) K/mm3 Abs Immat Gran (auto) (0.00-0.031) K/mm3 Absolute Neuts (auto) (1.3-6.7) K/mm3 Absolute Nucleated RBC (0.0-0.012) K/mm3 Band Neutrophils % Nucleated RBC % (0.0-0.2) % Platelet Estimate (Adequate) Hypochromasia Stomatocytes Schistocytes PT (11.1-14.7) Seconds INR APTT (22.3-36.8) Seconds Sodium Potassium Chloride 107 Carbon Dioxide Cancelled 28 Anion Gap Cancelled 6 BUN Cancelled Creatinine Estim Creat Clear Calc Estimated GFR Glucose Lactic Acid (0.7-2.0) mmol/L Calcium Total Bilirubin AST ALT Alkaline Phosphatase Troponin I (0.000-0.034) ng/mL C-Reactive Protein (<1.0) mg/dL NT-Pro-B Natriuret Pep (19.9-100) pg/mL Total Protein Albumin Influenza A (RT-PCR) (Negative) Influenza B (RT-PCR) (Negative) RSV (RT-PCR) (Negative) SARS-CoV-2 RNA (RT-PCR) (Negative) 11/01/24 11/01/24 11/01/24 Range/Units 17:04 17:04 17:04 WBC (4.5-10.0) K/mm3 RBC (4.2-5.4) M/mm3 Hgb (12.0-15.0) g/dL Hct (37.0-47.0) % MCV (80-100) fl MCH (26-34) pg MCHC (32-36) g/dl RDW (11.5-14.5) % Plt Count (150-375) k/mm3 MPV (7.4-10.4) fl Immature Gran % (Auto) (0-0.5) % Neut % (Auto) (45.5-73.1) % Lymph % (Auto) (18.3-44.2) % Merrick % (Auto) (2.6-8.5) % Eos % (Auto) (0-4.4) % Baso % (Auto) (0.2-1.2) % Lymph # (Auto) (0.9-3.2) K/mm3 Merrick # (Auto) (0.1-0.6) K/mm3 Eos # (Auto) (0-0.3) K/mm3 Baso # (Auto) (0.0-0.1) K/mm3 Abs Immat Gran (auto) (0.00-0.031) K/mm3 Absolute Neuts (auto) (1.3-6.7) K/mm3 Absolute Nucleated RBC (0.0-0.012) K/mm3 Band Neutrophils % Nucleated RBC % (0.0-0.2) % Platelet Estimate (Adequate) Hypochromasia Stomatocytes Schistocytes PT (11.1-14.7) Seconds INR APTT (22.3-36.8) Seconds Sodium Potassium Chloride Carbon Dioxide Anion Gap BUN 9 D Creatinine Cancelled 0.51 L Estim Creat Clear Calc Cancelled 94 Estimated GFR Cancelled Glucose Lactic Acid (0.7-2.0) mmol/L Calcium Total Bilirubin AST ALT Alkaline Phosphatase Troponin I (0.000-0.034) ng/mL C-Reactive Protein (<1.0) mg/dL NT-Pro-B Natriuret Pep (19.9-100) pg/mL Total Protein Albumin Influenza A (RT-PCR) (Negative) Influenza B (RT-PCR) (Negative) RSV (RT-PCR) (Negative) SARS-CoV-2 RNA (RT-PCR) (Negative) 11/01/24 11/01/24 11/01/24 Range/Units 17:04 17:04 17:04 WBC (4.5-10.0) K/mm3 RBC (4.2-5.4) M/mm3 Hgb (12.0-15.0) g/dL Hct (37.0-47.0) % MCV (80-100) fl MCH (26-34) pg MCHC (32-36) g/dl RDW (11.5-14.5) % Plt Count (150-375) k/mm3 MPV (7.4-10.4) fl Immature Gran % (Auto) (0-0.5) % Neut % (Auto) (45.5-73.1) % Lymph % (Auto) (18.3-44.2) % Merrick % (Auto) (2.6-8.5) % Eos % (Auto) (0-4.4) % Baso % (Auto) (0.2-1.2) % Lymph # (Auto) (0.9-3.2) K/mm3 Merrick # (Auto) (0.1-0.6) K/mm3 Eos # (Auto) (0-0.3) K/mm3 Baso # (Auto) (0.0-0.1) K/mm3 Abs Immat Gran (auto) (0.00-0.031) K/mm3 Absolute Neuts (auto) (1.3-6.7) K/mm3 Absolute Nucleated RBC (0.0-0.012) K/mm3 Band Neutrophils % Nucleated RBC % (0.0-0.2) % Platelet Estimate (Adequate) Hypochromasia Stomatocytes Schistocytes PT (11.1-14.7) Seconds INR APTT (22.3-36.8) Seconds Sodium Potassium Chloride Carbon Dioxide Anion Gap BUN Creatinine Estim Creat Clear Calc Estimated GFR > 60 Glucose Cancelled 94 Lactic Acid (0.7-2.0) mmol/L Calcium Cancelled 9.4 Total Bilirubin Cancelled AST ALT Alkaline Phosphatase Troponin I (0.000-0.034) ng/mL C-Reactive Protein (<1.0) mg/dL NT-Pro-B Natriuret Pep (19.9-100) pg/mL Total Protein Albumin Influenza A (RT-PCR) (Negative) Influenza B (RT-PCR) (Negative) RSV (RT-PCR) (Negative) SARS-CoV-2 RNA (RT-PCR) (Negative) 11/01/24 11/01/24 11/01/24 Range/Units 17:04 17:04 17:04 WBC (4.5-10.0) K/mm3 RBC (4.2-5.4) M/mm3 Hgb (12.0-15.0) g/dL Hct (37.0-47.0) % MCV (80-100) fl MCH (26-34) pg MCHC (32-36) g/dl RDW (11.5-14.5) % Plt Count (150-375) k/mm3 MPV (7.4-10.4) fl Immature Gran % (Auto) (0-0.5) % Neut % (Auto) (45.5-73.1) % Lymph % (Auto) (18.3-44.2) % Merrick % (Auto) (2.6-8.5) % Eos % (Auto) (0-4.4) % Baso % (Auto) (0.2-1.2) % Lymph # (Auto) (0.9-3.2) K/mm3 Merrick # (Auto) (0.1-0.6) K/mm3 Eos # (Auto) (0-0.3) K/mm3 Baso # (Auto) (0.0-0.1) K/mm3 Abs Immat Gran (auto) (0.00-0.031) K/mm3 Absolute Neuts (auto) (1.3-6.7) K/mm3 Absolute Nucleated RBC (0.0-0.012) K/mm3 Band Neutrophils % Nucleated RBC % (0.0-0.2) % Platelet Estimate (Adequate) Hypochromasia Stomatocytes Schistocytes PT (11.1-14.7) Seconds INR APTT (22.3-36.8) Seconds Sodium Potassium Chloride Carbon Dioxide Anion Gap BUN Creatinine Estim Creat Clear Calc Estimated GFR Glucose Lactic Acid (0.7-2.0) mmol/L Calcium Total Bilirubin 0.9 AST Cancelled 40 H ALT Cancelled 26 Alkaline Phosphatase Cancelled Troponin I (0.000-0.034) ng/mL C-Reactive Protein (<1.0) mg/dL NT-Pro-B Natriuret Pep (19.9-100) pg/mL Total Protein Albumin Influenza A (RT-PCR) (Negative) Influenza B (RT-PCR) (Negative) RSV (RT-PCR) (Negative) SARS-CoV-2 RNA (RT-PCR) (Negative) 11/01/24 11/01/24 11/01/24 Range/Units 17:04 17:04 17:04 WBC (4.5-10.0) K/mm3 RBC (4.2-5.4) M/mm3 Hgb (12.0-15.0) g/dL Hct (37.0-47.0) % MCV (80-100) fl MCH (26-34) pg MCHC (32-36) g/dl RDW (11.5-14.5) % Plt Count (150-375) k/mm3 MPV (7.4-10.4) fl Immature Gran % (Auto) (0-0.5) % Neut % (Auto) (45.5-73.1) % Lymph % (Auto) (18.3-44.2) % Merrick % (Auto) (2.6-8.5) % Eos % (Auto) (0-4.4) % Baso % (Auto) (0.2-1.2) % Lymph # (Auto) (0.9-3.2) K/mm3 Merrick # (Auto) (0.1-0.6) K/mm3 Eos # (Auto) (0-0.3) K/mm3 Baso # (Auto) (0.0-0.1) K/mm3 Abs Immat Gran (auto) (0.00-0.031) K/mm3 Absolute Neuts (auto) (1.3-6.7) K/mm3 Absolute Nucleated RBC (0.0-0.012) K/mm3 Band Neutrophils % Nucleated RBC % (0.0-0.2) % Platelet Estimate (Adequate) Hypochromasia Stomatocytes Schistocytes PT (11.1-14.7) Seconds INR APTT (22.3-36.8) Seconds Sodium Potassium Chloride Carbon Dioxide Anion Gap BUN Creatinine Estim Creat Clear Calc Estimated GFR Glucose Lactic Acid (0.7-2.0) mmol/L Calcium Total Bilirubin AST ALT Alkaline Phosphatase 73 Troponin I 0.035 H* (0.000-0.034) ng/mL C-Reactive Protein (<1.0) mg/dL NT-Pro-B Natriuret Pep 124 H (19.9-100) pg/mL Total Protein Cancelled 8.0 Albumin Cancelled 4.1 Influenza A (RT-PCR) Negative (Negative) Influenza B (RT-PCR) Negative (Negative) RSV (RT-PCR) Negative (Negative) SARS-CoV-2 RNA (RT-PCR) Negative (Negative) 11/01/24 11/01/24 11/02/24 Range/Units 19:05 21:14 00:23 WBC (4.5-10.0) K/mm3 RBC (4.2-5.4) M/mm3 Hgb (12.0-15.0) g/dL Hct (37.0-47.0) % MCV (80-100) fl MCH (26-34) pg MCHC (32-36) g/dl RDW (11.5-14.5) % Plt Count (150-375) k/mm3 MPV (7.4-10.4) fl Immature Gran % (Auto) (0-0.5) % Neut % (Auto) (45.5-73.1) % Lymph % (Auto) (18.3-44.2) % Merrick % (Auto) (2.6-8.5) % Eos % (Auto) (0-4.4) % Baso % (Auto) (0.2-1.2) % Lymph # (Auto) (0.9-3.2) K/mm3 Merrick # (Auto) (0.1-0.6) K/mm3 Eos # (Auto) (0-0.3) K/mm3 Baso # (Auto) (0.0-0.1) K/mm3 Abs Immat Gran (auto) (0.00-0.031) K/mm3 Absolute Neuts (auto) (1.3-6.7) K/mm3 Absolute Nucleated RBC (0.0-0.012) K/mm3 Band Neutrophils % Nucleated RBC % (0.0-0.2) % Platelet Estimate (Adequate) Hypochromasia Stomatocytes Schistocytes PT (11.1-14.7) Seconds INR APTT (22.3-36.8) Seconds Sodium Potassium Chloride Carbon Dioxide Anion Gap BUN Creatinine Estim Creat Clear Calc Estimated GFR Glucose Lactic Acid 0.9 (0.7-2.0) mmol/L Calcium Total Bilirubin AST ALT Alkaline Phosphatase Troponin I < 0.012 D < 0.012 (0.000-0.034) ng/mL C-Reactive Protein < 0.5 (<1.0) mg/dL NT-Pro-B Natriuret Pep (19.9-100) pg/mL Total Protein Albumin Influenza A (RT-PCR) (Negative) Influenza B (RT-PCR) (Negative) RSV (RT-PCR) (Negative) SARS-CoV-2 RNA (RT-PCR) (Negative) <Dagoberto Terrazas MD - Last Filed: 11/02/24 06:43> Imaging Data Attestation: I personally reviewed and interpreted this imaging study as follows: <Ni Silver APRN - Last Filed: 11/02/24 04:01> Radiologist's impression: Impressions Chest X-Ray 11/01/24 17:50 IMPRESSION: Minimal opacification the left lung base medially which may indicate atelectasis versus pneumonia. Clinical correlation advised. Chest CTA 11/01/24 21:26 IMPRESSION: 1. No pulmonary embolism. 2. Soft tissue density in the superior mediastinum around the medial end of the clavicle differential include hematoma and lymph nodes. 3. No acute cardiopulmonary pathology. <Ni Silver, ASUNCION - Last Filed: 11/02/24 04:01> Critical Care Time Critical Care Time Critical Care Time: No <Sharmila Ramsey PA-C - Last Filed: 11/02/24 12:22> Discharge Plan Discharge Clinical Impression: Bronchitis due to COVID-19 virus, Exertional shortness of breath, Expiratory wheezing <Sharmila Ramsey PA-C - Last Filed: 11/02/24 12:22> Patient Disposition: Left Against Medical Advice <Sharmila Ramsey PA-C - Last Filed: 11/02/24 12:22> Condition: Stable <Sharmila Ramsey PA-C - Last Filed: 11/02/24 12:22> Patient Language: [place] Citizen <Sharmila Ramsey PA-C - Last Filed: 11/02/24 12:22> Prescriptions: No Action amlodipine 10 mg tablet 10 mg PO DAILY zolpidem 10 mg tablet 10 mg PO QHS tizanidine 4 mg capsule 4 mg PO QHS oxycodone-acetaminophen [Percocet] 10-325 mg tablet 1 tablet PO Q6H PRN (Reason: Pain) docusate sodium 100 mg Capsule 100 mg PO Q12HR Qty: 60 0RF Linzess 145 mcg capsule See Rx Instructions .ROUTE .COMPLEX Qty: 30 6RF Dose Instruction: TAKE 1 CAPSULE BY MOUTH EVERY DAY Rx Instructions: TAKE 1 CAPSULE BY MOUTH EVERY DAY <Sharmila Ramsey PA-C - Last Filed: 11/02/24 12:22> Follow-up/Referrals: UNKNOWN,DOCTOR [Primary Care Provider] - <Sharmila Ramsey PA-C - Last Filed: 11/02/24 12:22>
[2024-11-01] MEDS: methylPREDNISolone SOD SUCC 125 MG VIAL IV PUSH (17:06)
[2024-11-01 17:15] LABS: Basophils Absolute Auto 0.1 K/mm3 (0.0-0.1); Basophils Percent Auto 0.7 % (0.2-1.2); Eosinophils Absolute Auto 0.1 K/mm3 (0-0.3); Eosinophils Percent Auto 1.6 % (0-4.4); Hematocrit 40.8 % (37.0-47.0); Hemoglobin 11.9 g/dL (12.0-15.0); Immature Granulocyte Absolute 0.04 K/mm3 (0.00-0.031); Immature Granulocyte Percent A 0.6 % (0-0.5); Lymphocytes Absolute Auto 2.37 K/mm3 (0.9-3.2); Lymphocytes Percent Auto 35.5 % (18.3-44.2); Mean Corpuscular HGB Conc 29.2 g/dl (32-36); Mean Corpuscular Hemoglobin 29.6 pg (26-34); Mean Corpuscular Volume 101.5 fl (80-100); Mean Platelet Volume 9.6 fl (7.4-10.4); Monocytes Absolute Auto 0.8 K/mm3 (0.1-0.6); Neutrophils Absolute Auto 3.3 K/mm3 (1.3-6.7); Neutrophils Percent Auto 49.6 % (45.5-73.1); Platelet Count Result 302 k/mm3 (150-375); Red Blood Count 4.02 M/mm3 (4.2-5.4); Red Cell Distribution Width 12.4 % (11.5-14.5); White Blood Count 6.7 K/mm3 (4.5-10.0)
[2024-11-01] MEDS: IPRATROPIUM 0.5 MG/ALBUTEROL SULFATE 2.5 MG AMPUL.NEB 3 ML INHALATION ×2 (17:24→19:35)
[2024-11-01 17:34] LABS: Partial Thromboplastin Time 33.9 Seconds (22.3-36.8); Prothrombin Time 13.3 Seconds (11.1-14.7)
[2024-11-01 17:41] LABS: Hypochromasia 1+; Platelet Estimate Adequate (Adequate); Schistocytes None Seen; Stomatocytes 1+
[2024-11-01 17:45] LABS: Alanine Aminotransferase 26 U/L (6-35); Albumin Level 4.1 g/dL (3.5-5.1); Alkaline Phosphatase 73 U/L (38-126); Anion Gap 6 mmol/L (4-12); Aspartate Amino Transferase 40 U/L (14-36); Bilirubin,Total 0.9 mg/dL (0.2-1.3); Blood Urea Nitrogen 9 mg/dL (7-17); Calcium 9.4 mg/dL (8.4-10.2); Carbon Dioxide 28 mmol/L (22-30); Chloride 107 mmol/L (98-107); Estimated CRCL calculation 94 ml/min; Estimated Glomerular Filt Rate > 60; Glucose 94 mg/dL (65-110); NT Pro B Type Natriuretic Pept 124 pg/mL (19.9-100); Potassium 4.3 mmol/L (3.4-5.0); Sodium 141 mmol/L (137-145); Troponin I 0.035 ng/mL (0.000-0.034)
[2024-11-01 17:51] LABS: Influenza A QL RT-PCR Negative (Negative); Influenza B QL RT-PCR Negative (Negative); RSV RNA, RT-PCR Negative (Negative); SARS-CoV-2 RNA PCR Negative (Negative)
[2024-11-01] MEDS: SODIUM CHLORIDE 0.9% IV 1,000 ML 500 ML IV CONT (18:53)
[2024-11-01 19:23] LABS: Lactic Acid Reflex 0.9 mmol/L (0.7-2.0)
[2024-11-01] MEDS: dexAMETHasone SOD PHOS INJ 10 MG/ML 1 ML VIAL IM (19:25)
[2024-11-01 19:26] LABS: CRP < 0.5 mg/dL (<1.0)
[2024-11-01] MEDS: AZITHROMYCIN 500 MG/NS 250 ML 500 MG/250 ML BAG 250 MG IVPB (20:55)
[2024-11-01 21:43] LABS: Troponin I < 0.012 ng/mL (0.000-0.034)
--- NOTE | 2024-11-01 22:45 | PC.NURSE ---
Patient placed in recliner for comfort. Placed on bed alarm. Returned to monitors, VS as charted. Patient provided food and water, OK per LACE SEWER. Awaiting update from provider and plan of care. Patient is beginning to escalate regarding her time spent waiting. SHe is aware of likely admission but states if I have to stay down here to wait for a room upstairs, I will sign out AMA . Discussed this with LACE SEWER. LACE SEWER to see patient.
--- NOTE | 2024-11-02 00:25 | PC.NURSE ---
Troponin redrawn by this RN, sent to lab. Hospitalist at bedside. Pt remains on full monitor, VS as charted. Call light in reach.
[2024-11-02 00:51] LABS: Troponin I < 0.012 ng/mL (0.000-0.034)
--- NOTE | 2024-11-02 02:44 | PC.NURSE ---
Patient refusing admission. Leaving AMA. After an hour of searching for her keys and patient stating that staff took her keys, she remembered that her daughter has them. She is calling for a ride from the waiting room. AMA paperwork complete, discussed at length benefits of staying and admission and risks of leaving AMA. Patient is A&Ox4, ambulatory [facility].
== END 2024-11-02 02:59 | disposition left against medical advice (07) ==
PROVIDERS: Physician Assistant; Emergency Provider Registered Nurse
DX: U07.1 COVID-19 (principal); J40 Bronchitis, not specified as acute or chronic; R06.02 Shortness of breath; I77.819 Aortic ectasia, unspecified site; I27.20 Pulmonary hypertension, unspecified; M85.80 Other specified disorders of bone density and structure, unspecified site; Z86.19 Personal history of other infectious and parasitic diseases; R06.2 Wheezing; R94.31 Abnormal electrocardiogram [ECG] [EKG]; I51.7 Cardiomegaly
CPT/HCPCS: 36415; 71046; 71275; 80053; 83605; 83880; 84484; 85025; 85610; 85730; 86140; 87040; 87070; 87205; 87637; 93005; 94640; 96361; 96365; 96372; 96375; 99284; J0456; J0696; J1100; J2919; J7030; Q9967